=== PATIENT | female | born 1960 | race Caucasian/White ===

== ENCOUNTER → 2018-01-21 14:34 | Outpatient (CLI) | payer OTHER, SELFPAY ==
--- NOTE | 2018-01-21 14:36 | HPBI_ITS ---
MAMMOGRAPHY - BILATERAL SCREENING REASON FOR EXAM: Female, 57 years old. Routine annual screening examination. PERTINENT HISTORY: Grandmother with breast cancer. TECHNIQUE: Digital bilateral breast marleny (3D mammographic acquisition) in the CC and MLO projections. 2-D mediolateral oblique (MLO) and craniocaudad (CC) views of both breasts were obtained. CAD: Full Field Digital Mammography with Computer Added Detection was performed. COMPARISON: Comparison is made with prior study dated January 11, 2017 and October 11, 2015. FINDINGS: Breast Composition: The breasts are heterogeneously dense, which may obscure small masses. There are no dominant masses or suspicious calcifications. No other significant abnormalities are identified. There has been no significant change since the prior study. HPBI/SCREENING MAMM (CAD), BILAT IMPRESSION: Stable bilateral screening mammogram. Yearly follow-up mammogram recommended. (A) ASSESSMENT CATEGORY: BIRADS Category 1: Negative. A letter regarding these results will be sent to the patient by the facility within 30 days. Approximately 10% of breast cancers are not detected by mammography. A normal mammogram should not delay biopsy of a clinically suspicious abnormality. [id number] Electronically Signed: Jordy Antonio MD at 8:05 EDT Tel [phone], Service support ,
== END ==
PROVIDERS: Family Provider Family Medicine; PCP Family Medicine; Visit Provider Family Medicine
DX: Z12.31 Encounter for screening mammogram for malignant neoplasm of breast (principal)
CPT/HCPCS: 77063; 77067

== ENCOUNTER → 2018-10-02 08:10 | Outpatient (CLI) | payer OTHER, SELFPAY ==
[2018-10-02 11:56] LABS: Absolute Lymphocyte Count 1.82 X10^3/ul (0.83-4.51); Absolute Neutrophil Count 4.2 X10^3/uL (2.0-7.7); Basophil# 0.01 X10^3/uL; Basophil% 0.2 % (0-1); Eosinophil# 0.08 X10^3/uL; Eosinophils% 1.2 % (0-5); Hematocrit 42.5 % (37-47); Lymphocyte # 1.82 X10^3/ul (4.0); Lymphocyte % 27.9 % (19-41); Mean Corp Hgb Conc 32.9 g/gl (32-36); Mean Corpuscular Hgb 28.5 pg (27.0-32.0); Mean Corpuscular Volume 86.6 fL (81-99); Mean Platelet Vol. 10.3 fl (6.2-12.0); Monocyte# 0.41 X10^3/uL; Monocyte% 6.3 % (0-10); Neutrophil # 4.19 X10^3/uL (2.7-7.7); Neutrophil % 64.2 % (47-70); Platelet Count 320 K/mm3 (150-450); RBC Distribution Width CV 13.5 % (11.6-14.6); RBC Distribution Width SD 42.8 fl (35.1-43.9); Red Blood Count 4.91 M/mm3 (4.2-5.4); White Blood Count 6.5 K/mm3 (4.4-11.0)
[2018-10-02 12:01] LABS: POSITIVE COUNT NO; POSITIVE DIFFERENTIAL NO; POSITIVE MORPHOLOGY NO
[2018-10-02 12:15] LABS: ALB/GLOB Ratio 1.1 RATIO (0.9-2.4); AST(SGOT) 35 U/L (15-37); Alanine Aminotransfer ALT/SGPT 54 U/L (13-56); Albumin, Serum 4.2 g/dL (3.2-5.0); Alkaline Phosphatase 133 U/L (45-117); Anion Gap 7 (5-15); BUN 18 mg/dL (7-18); Calcium,Total 9.4 mg/dL (8.5-10.1); Chloride 106 mmol/L (98-107); Cholesterol 259 mg/dL (200); Creatinine, Serum 0.78 mg/dL (0.55-1.02); EST Glomerular Filtration Rate 81 mL/min (>60); Est Glom Filt Rate - Afr Amer 98 mL/min (>60); Globulin 3.9 g/dL (2.2-4.2); Glucose 98 mg/dL (74-106); High Density Lipoprotein 45 mg/dL; Potassium 4.1 mmol/L (3.5-5.1); Protein, Total 8.1 g/dL (6.4-8.2); Sodium Level 140 mmol/L (136-145); T4 Free Direct 0.98 ng/dL (0.76-1.46); Thyroid Stim Hormone (TSH) 0.47 uIU/mL (0.358-3.74); Triglycerides 186 mg/dL; Very Low Density Lipoprotein 37 mg/dL (5-40)
--- OUTSIDE RECORDS SUMMARY | 2018-11-27 08:01 | XMS RPT_ITS ---
:1960 Author Organization [facility] Care Team Providers Name Role Phone Masoud Villanueva Attending Unavailable Malys, Liz Primary Care Unavailable Chad Luna Attending Unavailable Chad Luna Referring Unavailable Malys, Liz Primary Care Unavailable Malys, Liz Attending Unavailable Malys, Liz Primary Care Unavailable Malys, Liz Attending Unavailable Malys, Liz Primary Care Unavailable PROBLEMS PROBLEMS DATE TYPE CONDITION / CODE ATTENDING STATUS SOURCE 10/02/2018 Unknown Z51.81 - Encounter Malys, Liz Active [facility] for therapeutic Community drug level Hospital monitoring / Repository Z51.81(ICD-10) 10/02/2018 Unknown E78.5 - Malys, Liz Active [facility] Hyperlipidemia, Community unspecified / Hospital E78.5(ICD-10) Repository 10/02/2018 Unknown E04.1 - Nontoxic Malys, Liz Active [facility] single thyroid Community nodule / Hospital E04.1(ICD-10) Repository 10/29/2017 Unknown 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 / Hospital E04.2(ICD-10) Repository PROCEDURES PROCEDURES No Procedure Records FoundRESULTS RESULTS CBC W/DIFF, AUTOMATED Collected: 10/02/2018 Status: F Source: [place] 8:11 AM [facility] REPOSITORY TYPE CODE TESTS RESULT OUT OF RANGE REFERENCE UNITS LAB L100.1000 4.4-11.0 K/mm3 Normal WBC 6.5 LAB L100.1200 4.2-5.4 M/mm3 Normal RBC 4.91 LAB L100.1300 12.0-15.0 g/dl Normal HGB 14.0 LAB L100.1400 37-47 % Normal HCT 42.5 LAB L100.1500 81-99 fL Normal MCV 86.6 LAB L100.1600 27.0-32.0 pg Normal MCH 28.5 LAB L100.1700 32-36 g/gl Normal MCHC 32.9 LAB L100.1810 11.6-14.6 % Normal RDW CV 13.5 LAB L100.1820 35.1-43.9 fl Normal RDW SD 42.8 LAB L100.1900 150-450 K/mm3 Normal PLT 320 LAB L100.2000 6.2-12.0 fl Normal MPV 10.3 LAB L100.2100 47-70 % Normal NEUT% 64.2 LAB L100.2200 19-41 % Normal LY% 27.9 LAB L100.2300 0-10 % Normal MONO% 6.3 LAB L100.2400 0-5 % Normal EO% 1.2 LAB L100.2500 0-1 % Normal BASO% 0.2 LAB L100.2550 0.0-0.9 % Normal IM GRAN % 0.200 Result Comment: IG% - Immature Granulocytes (promyelocytes, myelocytes and metamyelocytes) > 1% indicates that a LEFT SHIFT is Present. LAB L100.2620 2.0-7.7 X10 3/uL Normal Absolute Neut 4.2 LAB L100.2720 0.83-4.51 X10 3/ul Normal Absolute Lymph 1.82 Performed By: #### L100.0100 #### [facility] [place], [address] COMPREHENSIVE METABOLIC Collected: 10/02/2018 Status: F Source: KATHRINE ORTIZ 8:[address] [facility] REPOSITORY TYPE CODE TESTS RESULT OUT OF RANGE REFERENCE UNITS LAB L501.0100 74-106 mg/dL Normal GLU 98 Result Comment: Please note revised GLUCOSE reference range effective 2017. LAB L501.1000 7-18 mg/dL Normal BUN 18 LAB L501.1100 0.55-1.02 mg/dL Normal CREAT,SERUM 0.78 Result Comment: The validity of the calculated GFR AND GFRAA in patients over 70 years has not been determined. Clinical correlation is essential. LAB L501.1110 >60 mL/min Normal EST GFR 81 Result Comment: Non- GFR Calc LAB L501.1115 >60 mL/min Normal EST GFR - AA 98 Result Comment: GFR Calc LAB L501.1300 10-20 RATIO High BUN/CRE 23.0 LAB L501.1500 6.4-8.2 g/dL T Normal PROT 8.1 LAB L501.1800 3.2-5.0 g/dL Normal ALB 4.2 LAB L501.1950 2.2-4.2 g/dL Normal GLOB 3.9 LAB L501.2000 0.9-2.4 RATIO Normal A/G 1.1 LAB L501.2200 8.5-10.1 mg/dL CA Normal 9.4 LAB L501.4100 15-37 U/L Normal AST 35 LAB L501.4305 45-117 U/L High ALK P 133 LAB L501.4405 13-56 U/L Normal ALT 54 LAB L501.4600 0.20-1.00 mg/dL T Normal BILI 0.40 LAB L501.5300 136-145 mmol/L NA Normal 140 LAB L501.5600 3.5-5.1 mmol/L K Normal 4.1 LAB L501.5900 98-107 mmol/L CL Normal 106 LAB L501.6100 21.0-32.0 mmol/L Normal CO2 27.0 LAB L501.6200 5-15 Normal GAP 7 Performed By: #### L500.4050, L500.4100, L501.9520, L506.0400 #### [facility] [address] [place], [place], [id number] LIPID PROFILE Collected: 10/02/2018 Status: F Source: KATHRINE 8:[address] [facility] REPOSITORY TYPE CODE TESTS RESULT OUT OF RANGE REFERENCE UNITS LAB L501.4900 200 mg/dL High CHOL 259 Result Comment: <200 mg/dL Desirable 200-240 mg/dL Borderline >240 mg/dL High Risk LAB L501.5000 mg/dL Normal TRIG 186 Result Comment: The drugs N-Acetylcysteine and Metamizole may falsely depress this assay. Serum Triglycerides Reference Interval Normal <150 mg/dL Borderline high 150 - 199 mg/dL High 200 - 499 mg/dL Very High > or = 500 mg/dL LAB L501.6400 mg/dL Normal HDL 45 Result Comment: The drugs N-Acetylcysteine and Metamizole may falsely depress this assay. Reference Range HDL <40 mg/dL Low HDL Cholesterol HDL >or= 60 mg/dL High HDL Cholesterol LAB L501.6500 0-130 mg/dL High LDL 177 LAB L501.6600 5-40 mg/dL Normal VLDL 37 Performed By: #### L500.4050, L500.4100, L501.9520, L506.0400 #### [facility] [address] [facility] [place], [place], [id number] THYROID STIM HORMONE Collected: 10/02/2018 Status: F Source: KATHRINE (TSH) 8:[address] [facility] REPOSITORY TYPE CODE TESTS RESULT OUT OF RANGE REFERENCE UNITS LAB L501.9520 0.358-3.74 uIU/mL Normal TSH 0.47 Performed By: #### L500.4050, L500.4100, L501.9520, L506.0400 #### [facility] [address] [facility] [place], [place], [id number] T4 FREE DIRECT Collected: 10/02/2018 Status: F Source: KATHRINE 8:[address] [facility] REPOSITORY TYPE CODE TESTS RESULT OUT OF RANGE REFERENCE UNITS LAB L506.0400 0.76-1.46 ng/dL Normal T4 FREE 0.98 DIRECT Performed By: #### L500.4050, L500.4100, L501.9520, L506.0400 #### [facility] [address] [place], [address] T3 TOTAL - TRIIODOTHYRONINE Collected: 10/02/2018 Status: F Source: [place] 8:[address] [facility] REPOSITORY TYPE CODE TESTS RESULT OUT OF RANGE REFERENCE UNITS LAB L501.9186 0.6-1.81 ng/mL Normal T3 Total 1.30 Performed By: #### L501.9186 #### [facility] [address] [place], [address] SCREENING MAMM (CAD), Observed: 01/21/2018 Status: F Source: [place] BILAT 2:[address] [facility] REPOSITORY [facility] Imaging Services [address] [place] [address] SCREENING MAMM (CAD), BILAT MR#: [id number] Acct: [id number] Name: POOJA MATSON Rep #: [id number] : 1960 F 57 From: Jordy Antonio MD PCP: Liz Mendoza DO Status: REG CL Study: SCREENING MAMM (CAD), BILAT Date of Exam: 01/21/18 Exam# [id number] Ordering Dr: Liz Mendoza DO MAMMOGRAPHY - BILATERAL SCREENING REASON FOR EXAM: Female, 57 years old. Routine annual screening examination. PERTINENT HISTORY: Grandmother with breast cancer. TECHNIQUE: Digital bilateral breast marleny (3D mammographic acquisition) in the CC and MLO projections. 2-D mediolateral oblique (MLO) and craniocaudad (CC) views of both breasts were obtained. CAD: Full Field Digital Mammography with Computer Added Detection was performed. COMPARISON: Comparison is made with prior study dated January 11, 2017 and October 11, 2015. FINDINGS: Breast Composition: The breasts are heterogeneously dense, which may obscure small masses. There are no dominant masses or suspicious calcifications. No other significant abnormalities are identified. There has been no significant change since the prior study. HPBI/SCREENING MAMM (CAD), BILAT IMPRESSION: Stable bilateral screening mammogram. Yearly follow-up mammogram recommended. (A) ASSESSMENT CATEGORY: BIRADS Category 1: Negative. A letter regarding these results will be sent to the patient by the facility within 30 days. Approximately 10% of breast cancers are not detected by mammography. A normal mammogram should not delay biopsy of a clinically suspicious abnormality. [id number] Electronically Signed: Jordy Antonio MD at 8:05 EDT Tel [phone], Service support , CC: Liz Mendoza DO Loss Prevention Analyst: Signed US THYROID BIOPSY Observed: 11/15/2017 Status: F Source: [place] 9:[address] [facility] REPOSITORY [facility] Imaging Services [address] [place] [address] US Thyroid Biopsy MR#: [id number] Acct: [id number] Name: POOJA MATSON Rep #: [id number] : 1960 F 57 From: Jordy Antonio MD PCP: Liz Mendoza DO Status: REG CLI Study: US Thyroid Biopsy Date of Exam: 11/15/17 Exam# [id number] Ordering Dr: Chad Luna MD PROCEDURE: ULTRASOUND GUIDED LEFT LOBE THYROID FNA/BIOPSY. DATE: November 15, 2017. INDICATION: Female, 57 years old. Left thyroid nodule. PHYSICIAN: Jordy Antonio M.D. MEDICATIONS: 2% lidocaine administered subcutaneously for local anesthesia. ACCESS SITE: Left - anterior approach. NEEDLE: 25-gauge FNA needle. SPECIMEN: Multiple FNA specimen collected and given to pathology. EBL: None. COMPLICATIONS: None immediate. PROCEDURE: The risks, benefits, and alternatives to the procedure were explained to the patient. The specific risk of hemorrhage requiring further treatment or intervention was detailed and accepted. Written informed consent was obtained. The patient was brought into the ultrasound room and placed in the supine position on the stretcher. An appropriate entry site was identified. The overlying skin was prepped and draped in the usual sterile fashion. 2% lidocaine was administered subcutaneously for local anesthesia. Under ultrasound guidance, a 25-gauge FNA needle was advanced into the lesion. Aspiration was performed and the needle was withdrawn. A total of 4 passes were performed with specimen collected and given to the pathologist who was present during the procedure. Hemostasis was achieved with manual compression. Repeat ultrasound images of the biopsy area was performed which demonstrated no gross bleeding or hematoma. An antibiotic ointment dressing was placed and the patient was given an icepack. The patient tolerated the procedure well without immediate complications. The patient was discharged in stable condition. US/US Thyroid Biopsy IMPRESSION: Successful ultrasound-guided left thyroid nodule FNA/biopsy, as described above. Electronically Signed: Jordy Antonio MD at 11:11 EST Tel [phone], Service support , CC: Chad Luna MD; Liz Mendoaz DO Loss Prevention Analyst: Signed THYROID STIM HORMONE Collected: 11/15/2017 Status: F Source: [place] (TSH) 9:[address] [facility] REPOSITORY TYPE CODE TESTS RESULT OUT OF RANGE REFERENCE UNITS LAB L501.9520 0.358-3.74 uIU/mL Normal TSH 0.45 Performed By: #### L501.9520 #### [facility] [address] [place], [address] ASP RADIOLOGY (FLUID) Observed: 11/15/2017 Status: F Source: KATHRINE 12:[address] [facility] REPOSITORY Patient: POOJA MATSON : 1960 (57/F) Acct Num: [id number] Phys: Chad Luna MD Unit Num: [id number] Loc: Specimen: [id number] Received: 11/15/17 - 1204 Spec Type: ASP OUT TISSUES TISSUES: Thyroid gland, NOS COMMENT The specimen is evaluated at the time of left thyroid FNA by Dr. Rai. Immediate Evaluation = Set #1 A few follicular cells noted. Set #2 Follicular cells noted. Correlation with clinical, radiologic findings and appropriate follow up are necessary. Please make reference to previous specimen ([id number]) right thyroid, FNA with diagnosis of consistent with colloid nodule. CYTOLOGY GROSS Set #1 3 passes - Received is 0.1 ml of bloody fluid labeled with the patient' s name, and designated left thyroid nodule. Four imprints and four paps are made from the submitted fluid and the rest is added to CytoLyt for cell block preparation. Submitted for cytology study. Set #2 1 pass - Received is 0.1 ml of bloody fluid labeled with the patient's name, and designated left thyroid nodule. Two imprints and two paps are made from the submitted fluid and the rest is added to CytoLyt for cell block preparation. Submitted for cytology study. / PHOEBE:kaitlynn 11/15/17 TC:5 CPT: 55928, 38227, 64729, 67055, 21779 CYTOLOGY STUDY Slides are reviewed. The specimen is adequate for evaluation. The specimen consists of benign follicular cells, H rthle cells and a small amount of colloid. DIAGNOSIS CYTOLOGY Left thyroid nodule, ultrasound-guided FNA (smears, cytospin and cell block): Consistent with benign follicular nodule. See cytology study and comment. SJ:kaitlynn 11/18/17 HEADER OPERATION: Thyroid FNA PRE-OP DIAGNOSIS: Nodule TISSUE SUBMITTED: Left thyroid nodule FNA Signed Nazario Rai 11/18/17 <signature on file> Performed By: #### PASTHAG #### [facility] [address] [facility] [place], [address] THYROID Observed: 10/29/2017 Status: F Source: [place] 2:[address] [facility] REPOSITORY [facility] Imaging Services [address] [place] [address] [place] [address] Thyroid MR#: [id number] Acct: [id number] Name: POOJA MATSON Rep #: [id number] : 1960 F 57 From: Coy Chaney MD PCP: Liz Mendoza DO Status: REG CLI Study: Thyroid Date of Exam: 10/29/17 Exam# [id number] Ordering Dr: Masoud Villanueva DO STUDY: THYROID ULTRASOUND REASON FOR EXAM: Female, 57 years old. Enlarged thyroid. History of nodules. TECHNIQUE: Ultrasound evaluation of the thyroid was performed with real-time and static bill-scale imaging. COMPARISON: None. FINDINGS: RIGHT LOBE: The right lobe of the thyroid gland measures 5.2 x 2.4 x 1.8 cm. There is a homogeneous echotexture. There are 2 solid, incompletely defined nodules. One is in the medial upper pole, measuring 8 x 9 x 6 mm. Just below this is a 10 x 8 x 8 mm nodule. LEFT LOBE: The left lobe of the thyroid gland measures 5.8 x 2.0 x 1.5 cm. There is a homogeneous echotexture. There is an incompletely defined 2.3 x 1.3 x 1.2 cm solid nodule in the posterior lower pole. ISTHMUS: The isthmus measures 5 mm. The regional lymph nodes are normal. The patient had a history of congenital esophageal atresia. There are additional echogenic findings lateral to the right lobe that are presumably related to previous esophageal repair. US/Thyroid IMPRESSION: Bilateral solid thyroid nodules, as described. The largest is in the left lobe. Comparison with the previous outside studies would be useful. If clinically indicated, the left lobe nodule may be amenable to ultrasound-guided needle biopsy. Electronically Signed: Owen Chaney MD at 15:50 EST , Service support , CC: Liz Mendoza DO; Masoud Villanueva DO Loss Prevention Analyst: Signed ALLERGIES ALLERGIES DATE TYPE / CODE NAME / CODE REACTION SEVERITY SOURCE 09/02/2015 Drug nut - Anaphylaxis Unknown [facility] Allergy/4160 unspecified [facility] [address](SNOMED /[id number] Repository CT) (RXNORM) ENCOUNTERS ENCOUNTERS ADMIT/DISCHARGE ACCOUNT ADMITTING ENCOUNTER LOCATION SOURCE NUMBER CLASS 10/02/2018 [id number] Ambulatory Kathrine Breaks 0 [facility] ing:LAB.FUTUR Repository E 01/21/2018 [id number] Ambulatory [place] Bre[place] 8 [facility] ing:[place] Repository 11/15/2017 [id number] Ambulatory Kathrine Bre[place] 8 [facility] ing:[place] Repository 10/29/2017 [id number] Ambulatory Kathrine Kathrine 7 [facility] ing:[place] Repository PAYERS PAYERS ENCOUNTER GUARANTOR PAYER SUBSCRIBER SOURCE 10/02/2018 Pooja Matson1296 Primary Pooja GroopDOB: Kathrine BLANK [place]WOOSTER, Insurance:[place] [id number] [address]Lzb: icy Number: [facility] [id number] Repository (HP) Date:[id number] [address] [address]PZ: 10/02/2018 Secondary NOT GIVENUNK Kathrine Insurance:SELF PAY [facility] Number: Effective Repository Date:2018-09-05 01/21/2018 Pooja Matson1296 Primary Pooja GroopDOB: Kathrine BLANK [place]WOOSTER, Insurance:[employer] [id number] [address]Jea: icy Number: [facility] [id number] Repository (HP) Date:[id number] [address]KC: 01/21/2018 Secondary NOT GIVENUNK Bre[place] Insurance:SELF PAY [facility] Number: Effective Repository Date:2018-01-01 11/15/2017 Pooja Matson1296 Primary Pooja GroopDOB: Breaks BLANK [place]ER, Insurance:[employer] [id number] [address]Fif: icy Number: [facility] [id number] Repository () Date:7919-07-11GU [address] [address]KZ: 11/15/2017 Secondary NOT GIVENUNK Kathrine Insurance:SELF PA[facility] Number: Effective Repository Date:2017-11-13 10/29/2017 Pooja Maurice6 Primary Pooja VillegasB: Kathrine WONG, Insurance:[employer] [id number] [address]Hrx: icy Number: [facility] [id number] Repository () Date:7425-04-15TA [address] [address]GE: 10/29/2017 Secondary NOT GIVENUNK Breaks Insurance:SELF PAY [facility] Hospital Number: Effective Repository Date:2017-10-21
== END ==
PROVIDERS: Family Provider Family Medicine; PCP Family Medicine; Visit Provider Family Medicine
DX: E78.5 Hyperlipidemia, unspecified (principal); E04.1 Nontoxic single thyroid nodule; Z51.81 Encounter for therapeutic drug level monitoring
CPT/HCPCS: 36415; 80053; 80061; 84439; 84443; 84480; 85025

== ENCOUNTER → 2018-11-19 10:01 | Outpatient (CLI) | payer OTHER, SELFPAY ==
--- NOTE | 2018-11-19 10:06 | US_ITS ---
STUDY: THYROID ULTRASOUND REASON FOR EXAM: Female, 58 years old. History of thyroid nodules. Prior left thyroid biopsy. TECHNIQUE: Ultrasound evaluation of the thyroid was performed with real-time and static bill-scale imaging. COMPARISON: Comparison is made with prior study dated October 29, 2017. FINDINGS: RIGHT LOBE: The right lobe of the thyroid gland is enlarged and measures 5.8 cm x 3 cm x 1.9 cm. There is a homogeneous echotexture. There are 3 solid nodules within the lobe. The largest measures 1.4 cm x 0.9 cm x 0.8 cm. LEFT LOBE: The left lobe of the thyroid gland is enlarged and measures 6 cm x 2.1 cm x 1.8 cm. There is a homogeneous echotexture. 2 solid nodules are seen. The largest measures 2.4 cm x 2 cm x 1.2 cm. This is in the midportion of the left lobe. ISTHMUS: The isthmus measures 4.0 mm. The regional lymph nodes are normal. US/Thyroid IMPRESSION: Enlargement of the right and left lobes of the thyroid gland. Stable solid nodules in both lobes more prominent on the left side. The patient underwent a biopsy of the dominant nodule in the left lobe. Electronically Signed: Jordy Antonio MD at 12:45 EST Tel [phone], Service support ,
--- OUTSIDE RECORDS SUMMARY | 2019-01-24 02:42 | XMS RPT_ITS ---
:1960 Author Organization [facility] Care Team Providers Name Role Phone Luna, Chad Attending Unavailable Luna, Chad Referring Unavailable Malys, Liz Primary Care Unavailable Malys, Liz Attending Unavailable Malys, Liz Primary Care Unavailable Malys, Liz Attending Unavailable Malys, Liz Primary Care Unavailable PROBLEMS PROBLEMS DATE TYPE CONDITION / CODE ATTENDING STATUS SOURCE 10/02/2018 Unknown Z51.81 - Malys, Liz Active [place] Encounter for Community therapeutic drug Hospital level monitoring Repository / Z51.81(ICD-10) 10/02/2018 Unknown E78.5 - Malys, Liz Active [place] Hyperlipidemia, Community unspecified / Hospital E78.5(ICD-10) Repository 10/02/2018 Unknown E04.1 - Nontoxic Malys, Liz Active [place] single thyroid Community nodule / Hospital E04.1(ICD-10) Repository PROCEDURES PROCEDURES No Procedure Records FoundRESULTS RESULTS THYROID Observed: 11/19/2018 Status: F Source: [place] 10:07 AM [facility] RE[facility]IT[facility] Imaging Services [address] [place] [address] Thyroid MR#: [id number] Acct: [id number] Name: POOJA MATSON Rep #: [id number] : 1960 F 58 From: Jordy Antonio MD PCP: Liz Mendoza DO Status: REG CLI Study: Thyroid Date of Exam: 11/19/18 Exam# [id number] Ordering Dr: Chad Luna MD STUDY: THYROID ULTRASOUND REASON FOR EXAM: Female, 58 years old. History of thyroid nodules. Prior left thyroid biopsy. TECHNIQUE: Ultrasound evaluation of the thyroid was performed with real-time and static bill-scale imaging. COMPARISON: Comparison is made with prior study dated October 29, 2017. FINDINGS: RIGHT LOBE: The right lobe of the thyroid gland is enlarged and measures 5.8 cm x 3 cm x 1.9 cm. There is a homogeneous echotexture. There are 3 solid nodules within the lobe. The largest measures 1.4 cm x 0.9 cm x 0.8 cm. LEFT LOBE: The left lobe of the thyroid gland is enlarged and measures 6 cm x 2.1 cm x 1.8 cm. There is a homogeneous echotexture. 2 solid nodules are seen. The largest measures 2.4 cm x 2 cm x 1.2 cm. This is in the midportion of the left lobe. ISTHMUS: The isthmus measures 4.0 mm. The regional lymph nodes are normal. US/Thyroid IMPRESSION: Enlargement of the right and left lobes of the thyroid gland. Stable solid nodules in both lobes more prominent on the left side. The patient underwent a biopsy of the dominant nodule in the left lobe. Electronically Signed: Jordy Antonio MD at 12:45 EST Tel [phone], Service support , CC: Chad Luna MD; Liz Mendoza DO Assembler Body: Signed CBC W/DIFF, AUTOMATED Collected: 10/02/2018 Status: F Source: [place] 8:11 AM [facility] REPOSITORY TYPE CODE TESTS RESULT OUT [...] Lymph 1.82 Performed By: #### L100.0100 #### [facility] [address] [place], [address] COMPREHENSIVE METABOLIC Collected: 10/02/2018 Status: F Source: [place] [facility] 8:11 AM [facility] REPOSITORY TYPE CODE TESTS RESULT OUT [...] By: #### L500.4050, L500.4100, L501.9520, L506.0400 #### [facility] [address] [place], [address] LIPID PROFILE Collected: 10/02/2018 Status: F Source: [place] 8:11 AM [facility] REPOSITORY TYPE CODE TESTS RESULT OUT [...] By: #### L500.4050, L500.4100, L501.9520, L506.0400 #### [facility] [address] [place], [place], [id number] THYROID STIM HORMONE Collected: 10/02/2018 Status: F Source: [place] (TSH) 8:11 AM [facility] REPOSITORY TYPE CODE TESTS RESULT OUT OF RANGE REFERENCE UNITS LAB L501.9520 0.358-3.74 uIU/mL Normal TSH 0.47 Performed By: #### L500.4050, L500.4100, L501.9520, L506.0400 #### [facility] [address] [place], [place], [address] T4 FREE DIRECT Collected: 10/02/2018 Status: F Source: [place] 8:11 AM [facility] REPOSITORY TYPE CODE TESTS RESULT OUT OF RANGE REFERENCE UNITS LAB L506.0400 0.76-1.46 ng/dL Normal T4 FREE 0.98 DIRECT Performed By: #### L500.4050, L500.4100, L501.9520, L506.0400 #### [facility] [address] [place], [place], [address] T3 TOTAL - TRIIODOTHYRONINE Collected: 10/02/2018 Status: F Source: [place] 8:11 AM [facility] REPOSITORY TYPE CODE TESTS RESULT OUT OF RANGE REFERENCE UNITS LAB L501.9186 0.6-1.81 ng/mL Normal T3 Total 1.30 Performed By: #### L501.9186 #### [facility] [address] [place], [address] SCREENING MAMM (CAD), Observed: 01/21/2018 Status: F Source: [place] BILAT 2:36 PM [facility] REPOSITORY [facility] Imaging Services [address] [place] [address] SCREENING MAMM (CAD), BILAT MR#: [id number] Acct: [id number] Name: POOJA MATSON Rep #: [id number] : 1960 F 57 From: Jordy Antonio MD PCP: Liz Mendoza DO Status: REG CLI Study: SCREENING MAMM (CAD), BILAT Date of Exam: 01/21/18 Exam# [id number] Ordering Dr: Liz Mendoza DO MAMMOGRAPHY - [...] delay biopsy of a clinically suspicious abnormality. [id number] Electronically Signed: Jordy Antonio MD at 8:05 EDT Tel [phone], Service support , CC: Liz Mendoza DO Assembler Body: Signed ALLERGIES ALLERGIES DATE TYPE / CODE NAME / CODE REACTION SEVERITY SOURCE 09/02/2015 Drug nut - Anaphylaxis Unknown [place] [facility] Allergy/4160 unspecified Hospital 11914(SNOMED /[id number] Repository CT) (RXNORM) ENCOUNTERS ENCOUNTERS ADMIT/DISCHARGE ACCOUNT ADMITTING ENCOUNTER LOCATION SOURCE NUMBER CLASS 11/19/2018 [id number] Ambulatory [place] [facility] ing:US Repository 10/02/2018 [id number] Ambulatory [place] [facility] ing:LAB.LOVE Repository E 01/21/2018 [id number] Ambulatory [place] [facility] ing: Repository PAYERS PAYERS ENCOUNTER GUARANTOR PAYER SUBSCRIBER SOURCE 11/19/2018 POOJA Laboy Primary POOJA S [place] [id number] BLANK Insurance:DIANELYSCAREJosé GROOPDOB: [facility] jeramie WONG [facility] Number: [id number] Hospital [address]Jyk: (269) [id number] Repository [phone] () Date:2451-23-24BB [address] [place] [phone]: 11/19/2018 Secondary NOT GIVENUNK [place] Insurance:SELF PAY [facility] Number: Effective Repository Date:2018-10-31 10/02/2018 Pooja [id number] Primary Pooja GroopDOB: [place] BLANK MARVIN, Insurance:AULTCAREPol [id number] [address]Jue: icy Number: [facility] [id number] Repository () Date:1663-57-14OO [address] [place] [id number]: 10/02/2018 Secondary NOT GIVENUNK [place] Insurance:SELF PAY [facility] Number: Effective Repository Date:2018-09-05 01/21/2018 Pooja [id number] Primary Pooaj MatsonB: [place] BLANKKenna WONG, Insurance:AULTCAREPol [id number] [address]Kpv: icy Number: [facility] [id number] Repository () Date:4264-24-48NN [facility] [address] [place] [id number]: 01/21/2018 Secondary NOT GIVENUNK [place] Insurance:SELF PAY [facility] Number: Effective Repository Date:2018-01-01
== END ==
PROVIDERS: Family Provider Family Medicine; PCP Family Medicine; Referring Provider Otolaryngology; Visit Provider Otolaryngology
DX: E04.2 Nontoxic multinodular goiter (principal)
CPT/HCPCS: 76536

== ENCOUNTER → 2019-03-03 | Outpatient (CLI) | payer OTHER, SELFPAY ==
--- NOTE | 2019-03-03 12:03 | BI_ITS ---
MAMMOGRAPHY - BILATERAL SCREENING REASON FOR EXAM: Female, 58 years old. Routine annual screening examination. PERTINENT HISTORY: Grandmother with breast cancer. TECHNIQUE: Digital bilateral breast marleny (3D mammographic acquisition) in the CC and MLO projections. 2-D mediolateral oblique (MLO) and craniocaudad (CC) views of both breasts were obtained. CAD: Full Field Digital Mammography with Computer Added Detection was performed. COMPARISON: Comparison is made with prior study January 21, 2018 and January 11, 2017. FINDINGS: Breast Composition: The breasts are heterogeneously dense, which may obscure small masses. There are no dominant masses or suspicious calcifications. No other significant abnormalities are identified. There has been no significant change since the prior study. BI/SCREENING MAMM (CAD), BILAT IMPRESSION: Stable bilateral screening mammogram. Yearly follow-up mammogram recommended. (A) ASSESSMENT CATEGORY: BIRADS Category 1: Negative. A letter regarding these results will be sent to the patient by the facility within 30 days. Approximately 10% of breast cancers are not detected by mammography. A normal mammogram should not delay biopsy of a clinically suspicious abnormality. [id number] Electronically Signed: Jordy Antonio, at 13:49 EDT , Service support ,
== END | disposition home or self-care (01) ==
LOC: OPBI 12:01
PROVIDERS: Family Provider Family Medicine; PCP Family Medicine; Referring Provider Family Medicine; Visit Provider Family Medicine
DX: Z12.31 Encounter for screening mammogram for malignant neoplasm of breast (principal)
CPT/HCPCS: 77063; 77067

== ENCOUNTER → 2019-06-17 | Outpatient (CLI) | payer OTHER, SELFPAY ==
--- NOTE | 2019-06-17 09:00 | RAD_ITS ---
STUDY: X-RAY - RIGHT SHOULDER REASON FOR EXAM: Female, 59 years old. Fall. Posterior rib and right shoulder pain. TECHNIQUE: 4 view(s) of the shoulder. COMPARISON: Chest, September 02, 2015 FINDINGS: There is mild degenerative arthrosis of the glenohumeral articulation. There is degenerative arthrosis of the acromioclavicular joint without inferior osseous spur formation. Normal acromion. There is no acute fracture, dislocation or destructive osseous pathology. Normal humeral head and visualized proximal humerus. The soft tissue structures are unremarkable. There is slightly abnormal position of the right fourth rib. This appears unchanged from prior chest film. Normal visualized pulmonary apex. Question atelectatic changes at the right lung base. RAD/Shoulder min 2 Views IMPRESSION: Degenerative changes right shoulder without visualized fracture or dislocation. Electronically Signed: Tima Aguilar DO at 17:25 EDT Tel [phone], Service support ,
--- NOTE | 2019-06-17 09:01 | RAD_ITS ---
STUDY: X-RAY - UNILATERAL RIBS ( RIGHT ) WITH CHEST REASON FOR EXAM: Female, 59 years old. Fall. Posterior rib and right shoulder pain. TECHNIQUE - RIBS: 4 view(s) of the ribs. TECHNIQUE - CHEST: COMPARISON: Chest, September 02, 2015. FINDINGS - RIBS: There is no definite fracture. There is slight irregularity in positioning of the right fourth rib which is chronic and may represent a remote fracture. FINDINGS - CHEST: There is persistent scarring at the right lung base. There is no new mass or infiltrate. There is no demonstrated pleural abnormality. Normal size heart. Normal mediastinum and chikis. Normal visualized pulmonary arteries. Normal visualized aortic arch and descending thoracic aorta. There are diffuse degenerative changes of the visualized thoracic spine. There is degenerative osteoarthritis of the bilateral shoulders. There is no demonstrated abnormality of the visualized soft tissue structures of the upper abdomen. RAD/Ribs Uni Min 3V w/PA Chest IMPRESSION: RIBS: No evidence of acute rib fracture. CHEST: Stable scarring at the right lung base unchanged from the previous examination. Electronically Signed: Tima Aguilar DO at 17:39 EDT Tel [phone], Service support ,
== END | disposition home or self-care (01) ==
PROVIDERS: Family Provider Family Medicine; PCP Family Medicine; Referring Provider Family Medicine; Visit Provider Family Medicine
DX: M25.511 Pain in right shoulder (principal); R07.81 Pleurodynia
CPT/HCPCS: 71101; 73030

== ENCOUNTER → 2019-12-08 | Outpatient (CLI) | payer OTHER, SELFPAY ==
--- NOTE | 2019-12-08 13:39 | US_ITS ---
STUDY: THYROID ULTRASOUND REASON FOR EXAM: Female, 59 years old. MULTINODULAR GOITER , ESOPHAGEAL/COLONIC JUNCTION TO RT - PT BORN W/O ESOPHAGUS TECHNIQUE: Ultrasound evaluation of the thyroid was performed with real-time and static bill-scale imaging. COMPARISON: Comparison is made with prior examination dated November 19, 2018. FINDINGS: RIGHT LOBE: The right lobe of the thyroid gland is enlarged and measures 6.4 cm x 2.7 cm x 1.7 cm. There is a heterogeneous echotexture. There is a dominant solid nodule in the midpole of the right lobe measuring 2.3 cm x 1.1 cm x 0.8 cm. This has increased in size as compared to prior study. The other nodules are unchanged. LEFT LOBE: The left lobe of the thyroid gland is enlarged and measures 6 cm x 1.9 cm x 1.7 cm. There is a heterogeneous echotexture. A dominant solid nodule is seen in the lower pole measuring 2.7 cm x 2 cm x 1.5 cm. This is essentially unchanged. The other 2 solid nodules are unchanged as well. ISTHMUS: The isthmus measures 4.0 mm. The regional lymph nodes are normal. US/Thyroid IMPRESSION: Thyroid enlargement. Bilateral thyroid nodules. There is a dominant solid nodule in the right lobe of the thyroid measuring 2.3 cm x 1.1 cm x 0.8 cm. This has increased in size. Electronically Signed: Jordy Antonio, at 11:06 EST , Service support ,
== END | disposition home or self-care (01) ==
LOC: US 13:36
PROVIDERS: PCP Family Medicine; Referring Provider Otolaryngology; Visit Provider Otolaryngology
DX: E04.2 Nontoxic multinodular goiter (principal)
CPT/HCPCS: 76536

== ENCOUNTER → 2020-01-07 | Outpatient (CLI) | payer OTHER, SELFPAY ==
[2020-01-07 18:47] LABS: Free T3 3.3 pg/mL (2.18-3.98); T4 Free Direct 0.97 ng/dL (0.76-1.46); Thyroid Stim Hormone (TSH) 0.68 uIU/mL (0.358-3.74)
[2020-01-08 08:23] LABS: PTHIN 38.3 pg/mL (18.4-80.1)
== END | disposition home or self-care (01) ==
LOC: BFHLAB 16:13
PROVIDERS: PCP Family Medicine; Visit Provider Family Medicine
DX: E03.9 Hypothyroidism, unspecified (principal)
CPT/HCPCS: 36415; 82330; 83970; 84439; 84443; 84481

== ENCOUNTER → 2020-09-06 13:02 | Outpatient (CLI) | payer OTHER, SELFPAY ==
--- NOTE | 2020-09-06 13:04 | BI_ITS ---
MAMMOGRAPHY - BILATERAL SCREENING REASON FOR EXAM: Female, 60 years old. Routine annual screening examination. PERTINENT HISTORY: Grandmother with breast cancer. TECHNIQUE: Digital bilateral breast janet (3D mammographic acquisition) in the CC and MLO projections. 2-D mediolateral oblique (MLO) and craniocaudad (CC) views of both breasts were obtained. CAD: Full Field Digital Mammography with Computer Added Detection was performed. COMPARISON: Comparison is made with prior study dated 03/03/2019 and 01/21/2018. FINDINGS: Breast Composition: The breasts are heterogeneously dense, which may obscure small masses. There are no dominant masses or suspicious calcifications. No other significant abnormalities are identified. There has been no significant change since the prior study. BI/SCREEN MAMM (CAD) W/JANET BILAT IMPRESSION: Stable bilateral screening mammogram. Yearly follow-up mammogram recommended. (A) ASSESSMENT CATEGORY: BIRADS Category 1: Negative. A letter regarding these results will be sent to the patient by the facility within 30 days. Approximately 10% of breast cancers are not detected by mammography. A normal mammogram should not delay biopsy of a clinically suspicious abnormality. [id number] Electronically Signed: Jordy Antonio, at 14:43 EST , Service support ,
== END ==
PROVIDERS: PCP Family Medicine; Referring Provider Family Medicine; Visit Provider Family Medicine
DX: Z12.31 Encounter for screening mammogram for malignant neoplasm of breast (principal)
CPT/HCPCS: 77063; 77067

== ENCOUNTER → 2020-11-21 12:40 | Outpatient (CLI) | payer OTHER, SELFPAY ==
--- NOTE | 2020-11-21 12:42 | US_ITS ---
HISTORY: MULTINODULAR GOTIER-S/P ESOPHAGUS REPAIR ON RT COMPARISON: 12/08/2019 TECHNIQUE: Grayscale and color Doppler sonography of the thyroid gland. FINDINGS: RIGHT LOBE: 5.3 x 1.7 x 2.8 cm LEFT LOBE: 5.8 x 2.1 x 2.1 cm ISTHMUS: 5 mm Heterogeneous with multiple bilateral nodules. Nodule in the right mid thyroid lobe is smoothly marginated, wider than tall, heterogeneous but overall minimally hypoechoic compared to parenchyma without calcification, currently measuring 1.2 x 0.7 x 1.0 cm and previously measuring 1.1 x 0.8 x 1.1 cm. TIRADS 4. Predominantly isoechoic nodule in the right mid thyroid lobe measuring 1.4 x 0.9 x 1.7 cm is smoothly marginated, nearly isoechoic, wider than tall without calcification, previously 2.3 x 0.8 x 1.1 cm. TIRADS 3. Mixed cystic and solid nodule in the right thyroid lobe measures 0.8 x 0.4 x 0.7 cm, less than seen on the prior study but probably mildly decreased. Lesion is wider than tall, smoothly marginated without definite calcification. TIRADS 3. Predominantly isoechoic left thyroid lobe nodule measuring 2.6 x 1.4 x 1.8 cm, previously 2.7 x 1.5 x 2.0 cm. Lesion is smoothly marginated, wider than tall without calcification. TIRADS 3. 7 x 4 x 6 mm nearly isoechoic left thyroid lobe nodule which is smoothly marginated, wider than tall without calcification, previously 8 x 4 x 8 mm. TIRADS 3. US/Thyroid IMPRESSION: Bilateral thyroid nodules, as described. at 0426 Reported and signed by: Courtney Parmar MD Electronically Signed: Courtney Parmar MD at 4:26 EST Tel , Service support ,
== END ==
PROVIDERS: PCP Family Medicine; Referring Provider Otolaryngology; Visit Provider Otolaryngology
DX: E04.2 Nontoxic multinodular goiter (principal)
CPT/HCPCS: 76536

== ENCOUNTER → 2020-12-12 | Outpatient (CLI) | payer OTHER, SELFPAY ==
--- NOTE | 2020-12-12 | FLU_PTH ---
PATIENT: KVNG MATSON [facility] U#:[id number] AGE/SX: 60/F ROOM: RE12/12/[address]: Dr. Chad Luna MD : 1960 BED: DIS: 12/12/2020 SPEC #: [id number] RECD: 12/12/20 14:57 STATUS: ANGELA REQ #: [id number] JAS: 12/12/20 00:[address]: Chad Luna DEPT: CYTOLOGY RECD BY: Capri Kolb ENTERED: 12/13/20 07:11 SP TYPE: Fluid OTHR DR: Dr. Liz Mendoza, DO Tissues: Thyroid gland, NOS Procedures: Special Stain Group II Surgery Specimen Level IV Cytospin Fluid HEADER OPERATION: FNA right thyroid PRE-OP DIAGNOSIS: Enlarging right thyroid nodule TISSUE SUBMITTED: FNA right thyroid fluid for cytology DIAGNOSIS CYTOLOGY Fine needle aspiration, right thyroid nodule (cytospin and cell block): Adequate for evaluation. Negative, consistent with benign follicular nodule. AM:kaitlynn 12/14/2020 CYTOLOGY STUDY Slides are reviewed. CYTOLOGY GROSS Received is 35 ml of light pink fluid labeled with the patient's name and and designated per the requisition as right thyroid. Submitted for cytology preparation including cell block. / kaitlynn 12/13/2020 TC:5 CPT: 83635, 63681
== END | disposition home or self-care (01) ==
LOC: LABSPEC 15:14
PROVIDERS: PCP Family Medicine; Referring Provider Otolaryngology; Visit Provider Otolaryngology
DX: E04.1 Nontoxic single thyroid nodule (principal)
CPT/HCPCS: 88108; 88305; 88313

== ENCOUNTER → 2021-10-23 13:20 | Outpatient (CLI) | payer OTHER, SELFPAY ==
--- NOTE | 2021-10-23 13:22 | BI_ITS ---
MAMMOGRAPHY - BILATERAL SCREENING REASON FOR EXAM: Female, 61 years old. Routine annual screening examination. PERTINENT HISTORY: Grandmother with breast cancer. TECHNIQUE: Digital bilateral breast janet (3D mammographic acquisition) in the CC and MLO projections. 2-D mediolateral oblique (MLO) and craniocaudad (CC) views of both breasts were obtained. CAD: Full Field Digital Mammography with Computer Added Detection was performed. COMPARISON: Comparison is made with prior study dated 09/06/2020 and 03/03/2019. FINDINGS: Breast Composition: The breasts are heterogeneously dense, which may obscure small masses. There are no dominant masses or suspicious calcifications. Stable small benign appearing bilateral axillary nodes. No other significant abnormalities are identified. There has been no significant change since the prior study. BI/SCRN MAMM (CAD)W/JANET BILAT IMPRESSION: Stable bilateral screening mammogram. Yearly follow-up mammogram recommended. (A) ASSESSMENT CATEGORY: BIRADS Category 2: Benign. A letter regarding these results will be sent to the patient by the facility within 30 days. Approximately 10% of breast cancers are not detected by mammography. A normal mammogram should not delay biopsy of a clinically suspicious abnormality. [id number] Electronically Signed: Jordy Antonio MD at 14:29 EST , Service support ,
== END ==
PROVIDERS: PCP Family Medicine; Referring Provider Family Medicine; Visit Provider Family Medicine
DX: Z12.31 Encounter for screening mammogram for malignant neoplasm of breast (principal)
CPT/HCPCS: 77063; 77067

== ENCOUNTER 2021-11-29 09:41 | Outpatient (CLI) | payer OTHER, SELFPAY ==
--- NOTE | 2021-11-29 09:44 | US_ITS ---
STUDY: THYROID ULTRASOUND REASON FOR EXAM: Female, 61 years old. MULTINODULAR GOITER TECHNIQUE: Ultrasound evaluation of the thyroid was performed with real-time and static bill-scale imaging. COMPARISON: Comparison is made with prior study dated 11/21/2020. FINDINGS: RIGHT LOBE: The right lobe of the thyroid gland is enlarged and measures 5.2 cm x 2.6 x 1.5 cm. There is a heterogeneous echotexture. Once again, multiple thyroid nodules are seen. The largest nodule measures 1.6 cm x 1.4 cm x 0.9 cm. This is in the mid pole. This is unchanged. TIRADS Category 3. LEFT LOBE: The left lobe of the thyroid gland is enlarged and measures 5.5 cm x 2.1 cm x 2.1 cm. There is a heterogeneous echotexture. 2010, multiple nodules are seen. The largest hypoechoic solid nodule is in the lower pole and measures 2.7 cm x 1.6 cm x 2.1 cm. This is essentially unchanged. TIRADS Category 3 ISTHMUS: The isthmus measures 5 mm. The regional lymph nodes are normal. US/Thyroid IMPRESSION: Enlargement of the thyroid gland with the multiple bilateral nodular densities as described. The largest is in the left lobe. There has been no change. Electronically Signed: Jordy Antonio MD at 13:23 EST ,
== END 2021-11-29 23:59 | disposition short-term general hospital (02) ==
LOC: US 09:43
PROVIDERS: PCP Family Medicine; Referring Provider Otolaryngology; Visit Provider Otolaryngology
DX: E04.2 Nontoxic multinodular goiter (principal)
CPT/HCPCS: 76536

== ENCOUNTER → 2022-11-08 | Outpatient (CLI) | payer OTHER, SELFPAY ==
[2022-11-08 12:21] LABS: Absolute Lymphocyte Count 1.63 X10^3/uL (0.83-4.51); Absolute Neutrophil Count 2.8 X10^3/uL (2.0-7.7); Basophil# 0.03 X10^3/uL; Basophil% 0.6 % (0-1); Eosinophil# 0.23 X10^3/uL; Eosinophils% 4.5 % (0-5); Hemoglobin 13.3 g/dL (12.0-15.0); Lymphocyte # 1.63 X10^3/ul (0.83-4.51); Lymphocyte % 32.1 % (19-41); Mean Corp Hgb Conc 32.4 g/dL (32-36); Mean Corpuscular Hgb 27.9 pg (27.0-32.0); Mean Platelet Vol. 10.2 fl (6.2-12.0); Monocyte# 0.42 X10^3/uL; Monocyte% 8.3 % (0-10); NRBC Flagged by Analyzer 0 % (0-5); Neutrophil # 2.75 X10^3/uL (2.7-7.7); Neutrophil % 54.1 % (47-70); Platelet Count 333 K/mm3 (150-450); RBC Distribution Width CV 13.2 % (11.6-14.6); RBC Distribution Width SD 41.6 fl (35.1-43.9); Red Blood Count 4.77 M/mm3 (4.2-5.4); White Blood Count 5.1 K/mm3 (4.4-11.0)
[2022-11-08 12:59] LABS: AST(SGOT) 36 U/L (15-37); Alanine Aminotransfer ALT/SGPT 71 U/L (13-56); Alkaline Phosphatase 151 U/L (45-117); Anion Gap 4 (5-15); BUN 21 mg/dL (7-18); BUN/Creat Ratio 27.4 RATIO (10-20); Calcium,Total 9.6 mg/dL (8.5-10.1); Chloride 103 mmol/L (98-107); Cholesterol 198 mg/dL (200); Creatinine, Serum 0.77 mg/dL (0.55-1.02); EST Glomerular Filtration Rate 82 mL/min (>60); Est Glom Filt Rate - Afr Amer 99 mL/min (>60); Glucose 96 mg/dL (74-106); High Density Lipoprotein 40 mg/dL; Potassium 4.7 mmol/L (3.5-5.1); Sodium Level 137 mmol/L (136-145); Thyroid Stim Hormone (TSH) 0.45 uIU/mL (0.358-3.74); Triglycerides 209 mg/dL; Very Low Density Lipoprotein 42 mg/dL (5-40)
== END | disposition home or self-care (01) ==
LOC: BFHLAB 10:11
PROVIDERS: PCP Family Medicine; Visit Provider Family Medicine
DX: Z00.00 Encounter for general adult medical examination without abnormal findings (principal); E04.1 Nontoxic single thyroid nodule; Z13.220 Encounter for screening for lipoid disorders
CPT/HCPCS: 36415; 80053; 80061; 84443; 85025

== ENCOUNTER → 2022-12-13 | Outpatient (CLI) | payer OTHER, SELFPAY ==
--- NOTE | 2022-12-13 10:34 | MRI_ITS ---
EXAM: MR RIGHT LOWER EXTREMITY WITHOUT INTRAVENOUS CONTRAST, KNEE CLINICAL INDICATION: MEDIAL MENISCUS TEAR TECHNIQUE: Multiplanar and multisequence MR images of the right knee without intravenous contrast. This report was created using [employer] report generation technology. COMPARISON: None. FINDINGS: BONES/JOINTS: Focal marrow signal alteration at the medial patellar facet with note of an adjacent full-thickness fissure at the medial patellar facet. Mild subtle amorphous bone marrow signal alteration at the posterior to central aspect of the medial tibial plateau. No fracture line identified. No other bone marrow signal alterations. EXTENSOR MECHANISM: Extensor mechanism is intact. MEDIAL MENISCUS: Intact medial meniscus. LATERAL MENISCUS: Intact lateral meniscus. MEDIAL CAPSULE/SUPPORTING STRUCTURES: Unremarkable. Intact. LATERAL CAPSULE/SUPPORTING STRUCTURES: Unremarkable. Lateral collateral ligamentous complex, inclusive of the popliteal tendon, are intact. ANTERIOR CRUCIATE LIGAMENT: ACL graft is disrupted with anterior translation of the tibia relative to the femur. PCL is intact. POSTERIOR CRUCIATE LIGAMENT: Intact. MUSCLES: Unremarkable. CARTILAGE: Unremarkable. Intact. FLUID: Small amount of suprapatellar joint fluid with small Fatima''s cyst. No joint effusion. OTHER SOFT TISSUES: See above. MRI/Lower Ext Joint Only (Routine) IMPRESSION: 1. ACL graft is disrupted with anterior translation of the tibia relative to the femur. 2. Focal marrow signal alteration at the medial patellar facet with note of an adjacent full-thickness fissure at the medial patellar facet. Electronically Signed: John Wills MD at 21:16 EST Reading Location ID and State: [address] [place] [address] Tel , Service support ,
== END | disposition home or self-care (01) ==
PROVIDERS: PCP Family Medicine; Referring Provider Orthopaedic Surgery; Visit Provider Orthopaedic Surgery
DX: S83.241A Other tear of medial meniscus, current injury, right knee, initial encounter (principal); X58.XXXA Exposure to other specified factors, initial encounter
CPT/HCPCS: 73721

== ENCOUNTER → 2023-01-10 | Outpatient (CLI) | payer OTHER, SELFPAY ==
--- NOTE | 2023-01-10 08:08 | BI_ITS ---
MAMMOGRAPHY - BILATERAL SCREENING REASON FOR EXAM: Female, 62 years old. Routine annual screening examination. PERTINENT HISTORY: Grandmother with breast cancer. TECHNIQUE: Digital bilateral breast janet (3D mammographic acquisition) in the CC and MLO projections. 2-D mediolateral oblique (MLO) and craniocaudad (CC) views of both breasts were obtained. CAD: Full Field Digital Mammography with Computer Added Detection was performed. COMPARISON: Comparison is made with prior study dated October 23, 2021 and September 06, 2020. FINDINGS: Breast Composition: The breasts are heterogeneously dense, which may obscure small masses. There are no dominant masses or suspicious calcifications. Stable small benign-appearing bilateral axillary lymph nodes. No other significant abnormalities are identified. There has been no significant change since the prior study. BI/SCRN MAMM (CAD)W/JANET BILAT IMPRESSION: Stable bilateral screening mammogram. Yearly follow-up mammogram recommended. (A) ASSESSMENT CATEGORY: BIRADS Category 2: Benign. A letter regarding these results will be sent to the patient by the facility within 30 days. Approximately 10% of breast cancers are not detected by mammography. A normal mammogram should not delay biopsy of a clinically suspicious abnormality. [id number] Electronically Signed: Jordy Antonio MD at 9:43 EST ,
== END | disposition home or self-care (01) ==
LOC: OPBI 08:06
PROVIDERS: PCP Family Medicine; Referring Provider Family Medicine; Visit Provider Family Medicine
DX: Z12.31 Encounter for screening mammogram for malignant neoplasm of breast (principal)
CPT/HCPCS: 77063; 77067

== ENCOUNTER → 2024-01-13 | Outpatient (CLI) | payer OTHER, SELFPAY ==
[2024-01-13 12:36] LABS: Absolute Lymphocyte Count 2.13 X10^3/uL (0.83-4.51); Absolute Neutrophil Count 2.4 X10^3/uL (2.0-7.7); Basophil# 0.05 X10^3/uL; Basophil% 0.8 % (0-1); Eosinophil# 0.89 X10^3/uL; Eosinophils% 14.8 % (0-5); Hematocrit 40.5 % (37-47); Hemoglobin 12.6 g/dL (12.0-15.0); Lymphocyte # 2.13 X10^3/ul (0.83-4.51); Lymphocyte % 35.3 % (19-41); Mean Corp Hgb Conc 31.1 g/dL (32-36); Mean Corpuscular Hgb 26.8 pg (27.0-32.0); Mean Platelet Vol. 10.1 fl (6.2-12.0); Monocyte# 0.56 X10^3/uL; Monocyte% 9.3 % (0-10); NRBC Flagged by Analyzer 0 % (0-5); Neutrophil # 2.39 X10^3/uL (2.7-7.7); Neutrophil % 39.6 % (47-70); Platelet Count 331 K/mm3 (150-450); RBC Distribution Width CV 13.3 % (11.6-14.6); RBC Distribution Width SD 41.7 fl (35.1-43.9); Red Blood Count 4.71 M/mm3 (4.2-5.4)
[2024-01-13 13:23] LABS: AST(SGOT) 31 U/L (15-37); Alanine Aminotransfer ALT/SGPT 47 U/L (13-56); Albumin, Serum 3.7 g/dL (3.2-5.0); Alkaline Phosphatase 125 U/L (45-117); Anion Gap 7 (5-15); BUN 18 mg/dL (7-18); BUN/Creat Ratio 20.5 RATIO (10-20); Calcium,Total 9.3 mg/dL (8.5-10.1); Chloride 105 mmol/L (98-107); Cholesterol 220 mg/dL (200); Creatinine, Serum 0.88 mg/dL (0.55-1.02); EST Glomerular Filtration Rate 70 mL/min (>60); Est Glom Filt Rate - Afr Amer 84 mL/min (>60); Globulin 3.8 g/dL (2.2-4.2); Glucose 93 mg/dL (74-106); High Density Lipoprotein 45 mg/dL; Protein, Total 7.5 g/dL (6.4-8.2); Sodium Level 139 mmol/L (136-145); Thyroid Stim Hormone (TSH) 0.49 uIU/mL (0.358-3.74); Triglycerides 183 mg/dL; Very Low Density Lipoprotein 37 mg/dL (5-40)
== END | disposition home or self-care (01) ==
LOC: BFHLAB 08:34
PROVIDERS: PCP Family Medicine; Visit Provider Family Medicine
DX: Z00.00 Encounter for general adult medical examination without abnormal findings (principal); Z13.220 Encounter for screening for lipoid disorders; E04.1 Nontoxic single thyroid nodule
CPT/HCPCS: 36415; 80053; 80061; 84443; 85025

== ENCOUNTER → 2024-01-24 | Outpatient (CLI) | payer BC, SELFPAY ==
--- NOTE | 2024-01-24 10:53 | BI_ITS ---
MAMMOGRAPHY - BILATERAL SCREENING REASON FOR EXAM: Female, 63 years old. Routine annual screening examination. PERTINENT HISTORY: Grandmother with breast cancer. TECHNIQUE: Digital bilateral breast janet (3D mammographic acquisition) in the CC and MLO projections. 2-D mediolateral oblique (MLO) and craniocaudad (CC) views of both breasts were obtained. CAD: Full Field Digital Mammography with Computer Added Detection was performed. COMPARISON: Comparison is made with prior study of January 10, 2023 and October 23, 2021. FINDINGS: Breast Composition: The breasts are heterogeneously dense, which may obscure small masses. There are no dominant masses or suspicious calcifications. Stable small benign-appearing bilateral axillary lymph nodes. No other significant abnormalities are identified. There has been no significant change since the prior study. BI/SCRN MAMM (CAD)W/JANET BILAT IMPRESSION: Stable bilateral screening mammogram. Yearly follow-up mammogram recommended. (A) ASSESSMENT CATEGORY: BIRADS Category 2: Benign. A letter regarding these results will be sent to the patient by the facility within 30 days. Approximately 10% of breast cancers are not detected by mammography. A normal mammogram should not delay biopsy of a clinically suspicious abnormality. [id number] Electronically Signed: Jordy Antonio MD at 12:18 EDT ,
== END | disposition home or self-care (01) ==
PROVIDERS: PCP Family Medicine; Referring Provider Family Medicine; Visit Provider Family Medicine
DX: Z12.31 Encounter for screening mammogram for malignant neoplasm of breast (principal)
CPT/HCPCS: 77063; 77067

== ENCOUNTER → 2025-01-26 | Outpatient (CLI) | payer BC, SELFPAY ==
--- NOTE | 2025-01-26 12:36 | BI_ITS ---
EXAM: PROCEDURE: MA Mammogram Digital Screen CLINICAL HISTORY: Screening COMPARISON: Mammogram studies dated 01/24/2024 and 01/10/2023 TECHNIQUE: A bilateral screening mammogram was obtained with MLO and CC views of both breasts with digital breast tomosynthesis. BREAST CANCER RISK ASSESSMENT: Does not appear to have been calculated. FINDINGS: No suspicious masses, suspicious calcifications or other suspicious mammogram findings are seen in either breast. Benign-appearing round calcifications are seen in both breasts. Stable nodular masslike densities are seen in the left breast. CONCLUSION: Right Breast: BI-RADS category 2, benign findings Left Breast: BI-RADS category 2, benign findings Breast Composition: There are scattered areas of fibroglandular density. Recommendation: Annual screening mammography Thank you for referring your patient to the [facility], if you have any questions, please call us at the performing site listed at the top of the report. [facility] , [facility] , [facility] and [facility] . Reading Location: [id number]
== END | disposition home or self-care (01) ==
LOC: OPBI 12:35
PROVIDERS: PCP Family Medicine; Referring Provider Family Medicine; Visit Provider Family Medicine
DX: Z12.31 Encounter for screening mammogram for malignant neoplasm of breast (principal)
CPT/HCPCS: 77063; 77067

== ENCOUNTER → 2025-01-28 | Outpatient (CLI) | payer BC, SELFPAY ==
[2025-01-28 12:41] LABS: Absolute Lymphocyte Count 1.55 X10^3/uL (0.83-4.51); Absolute Neutrophil Count 2.7 X10^3/uL (2.0-7.7); Basophil# 0.03 X10^3/uL; Basophil% 0.6 % (0-1); Eosinophil# 0.12 X10^3/uL; Eosinophils% 2.6 % (0-5); Hematocrit 41.4 % (37-47); Hemoglobin 13.8 g/dL (12.0-15.0); Lymphocyte # 1.55 X10^3/ul (0.83-4.51); Mean Corp Hgb Conc 33.3 g/dL (32-36); Mean Corpuscular Hgb 28.2 pg (27.0-32.0); Mean Corpuscular Volume 84.7 fL (81-99); Mean Platelet Vol. 10.2 fl (6.2-12.0); Monocyte# 0.32 X10^3/uL; Monocyte% 6.8 % (0-10); NRBC Flagged by Analyzer 0 % (0-5); Neutrophil # 2.67 X10^3/uL (2.7-7.7); Neutrophil % 56.8 % (47-70); Platelet Count 290 K/mm3 (150-450); RBC Distribution Width CV 12.9 % (11.6-14.6); RBC Distribution Width SD 39.5 fl (35.1-43.9); Red Blood Count 4.89 M/mm3 (4.2-5.4); White Blood Count 4.7 K/mm3 (4.4-11.0)
[2025-01-28 13:15] LABS: Rubella IgG REAC (Nonreactive)
[2025-01-28 19:35] LABS: ALB/GLOB Ratio 1.9 RATIO (0.9-2.4); AST(SGOT) 33 U/L (<=31); Alanine Aminotransfer ALT/SGPT 31 U/L (<=34); Albumin, Serum 4.4 g/dL (3.4-4.8); Alkaline Phosphatase 97 U/L (35-104); Anion Gap 14 (5-15); BUN 20 mg/dL (4-19); BUN/Creat Ratio 25.8 RATIO (10-20); Calcium,Total 9.6 mg/dL (7.6-11.0); Carbon Dioxide 21.9 mmol/L (21.0-32.0); Chloride 103 mmol/L (98-108); Creatinine, Serum 0.76 mg/dL (0.70-1.20); EST Glomerular Filtration Rate 88 (>60); Globulin 2.4 g/dL (2.2-4.2); Glucose 88 mg/dL (70-99); Potassium 4.3 mmol/L (3.3-5.1); Protein, Total 6.8 g/dL (5.9-8.4); Sodium Level 139 mmol/L (133-145); Thyroid Stim Hormone (TSH) 0.493 uIU/mL (0.300-4.200); Total Bilirubin 0.33 mg/dL (0.00-1.30)
[2025-01-28 19:56] LABS: Cholesterol 226 mg/dL (<=200); High Density Lipoprotein 54 mg/dL; Low Density Lipoprotein Calc. 135 mg/dL; Triglycerides 184 mg/dL; Very Low Density Lipoprotein 37 mg/dL (5-40)
[2025-01-29 07:07] LABS: Rubeola IgG Ab > 300.0 AU/mL (Immune >16.4)
== END | disposition home or self-care (01) ==
LOC: BIMLAB 08:54 → BFHLAB 09:21
PROVIDERS: PCP Family Medicine; Referring Provider Family Medicine; Visit Provider Family Medicine
DX: Z00.00 Encounter for general adult medical examination without abnormal findings (principal); E04.1 Nontoxic single thyroid nodule; Z13.220 Encounter for screening for lipoid disorders
CPT/HCPCS: 36415; 80053; 80061; 84443; 85025; 86762; 86765

== ENCOUNTER → 2025-09-10 | Outpatient (CLI) | payer BC, SELFPAY ==
--- OUTSIDE RECORDS SUMMARY | 2025-09-10 17:33 | XMS RPT_ITS | CCD ---
Author Organization [facility] Care Team Providers Care [employer] Boss Name Role Phone Dr. Liz Mendoza DO Primary Care Provider [phone] Dr. Liz Mendoza DO Attending Provider [phone] Dr. Liz Mendoza DO Referring Provider Liz Mendoza Referring Unavailable Liz Mendoza Primary Care Unavailable Liz Mendoza Attending Unavailable Liz Mendoza Referring Unavailable Liz Mendoza Primary Care Unavailable Liz Mendoza Attending Unavailable Allergies Allergy Classification Reported Allergen(s) Allergy Type Date of Onset Reaction(s) Facility (3 sources) nut - unspecified; Translations: [nut - unspecified] Allergy to substance 09-02-2015 Anaphylaxis [facility] Medications Current Medications Medication Drug Class(es) Dates Sig (Normalized) Sig (Original) aspirin 81 mg delayed release oral tablet (6 sources) Platelet Aggregation Inhibitor, Nonsteroidal Anti-inflammatory Drug Start: 09-02-2015 take 1 tablet by mouth once daily Aspirin 81 MG tablet Active 81 mg PO DAILY@0800 September 02, 2015 12:00am calcium carbonate 1500 mg / cholecalciferol 800 unt chewable tablet (6 sources) Vitamin D Start: 09-02-2015 take 1 tablet by mouth once daily Ca-D3-Mag Tj-Jvem-Laq-Mo -Bor 1 EACH tablet,chewable Active 1 NMA PO DAILY September 02, 2015 12:00am Start: 09-02-2015 Ca-D3-Mag Ox-Z khm-Uwk-Sjna-Bor Active 1 EACH PO DAILY September 02, 2015 12:00am famotidine 20 mg oral tablet (6 sources) Histamine-2 Receptor Antagonist Start: 09-02-2015 take 1 tablet by mouth twice daily Famotidine 20 MG tablet Active 20 mg PO TWICE A DAY September 02, 2015 12:00am zinc gluconate 50 mg oral tablet (6 sources) Start: 09-02-2015 take 1 tablet by mouth once daily Zinc Gluconate 50 MG tablet Active 50 mg PO DAILY September 02, 2015 12:00am Problems Problem Classification Problem Date Documented Da te Episodic/Chronic Other screening for suspected conditions (not mental disorders or infectious disease) (1 source) Encounter for screening mammogram for malignant neoplasm of breast; Translations: [Encounter for screening mammogram for malignant neoplasm of breast] Onset: 01-30-2025 Episodic Results Test Name Value Interpretation Reference Range Facil ity Rubeola IgG Abon 01-29-2025 RUBEOLA Ab, IgG > 300.0 Normal Immune >16.4 [facility] Comment on above: Result Comment: Nega tive <13.5 Equivocal 13.5 - 16.4 Positive >16.4 Presence of antibodies to Rubeola is presumptive evidence of immunity except when acute infection is suspected. Performed at: [facility] [id number] [employer]: Cornell Thorpe PhD, Phone: [phone] Performed By: #### L 3100.3300, L501.9520, L509.4006, L500.4100, L500.4050, L100.0100 #### [facility] [address] [place], [address] Absolute neutrophil countOrd ered By: Liz Mendoza on 01-28-2025 Neutrophils (Bld) [#/Vol] 2.7 10*3/uL 2.0-7.7 [facility] Anion gap in Serum or Plasma Ordered By: Liz Mendoza on 01-28-2025 Anion gap [Moles/Vol] 14 mmol/L 5-15 [facility] BUN/creatinine ratioOrdered By: Liz Mendoza on 01-28-2025 Urea nitrogen/Creatinine [Mass ratio] 25.8 mg/mg High 10-20 [facility] Basophil percentageOrdered B y: Liz Mendoza on 01-28-2025 Basophils/100 WBC (Bld) 0.6 % 0-[address] [facility] Bilirubin, totalOrdered By: Liz Mendoza on 01-28-2025 Bilirubin [Mass/Vol] 0.33 mg/dL 0.00-1.30 [facility] CBC W/Diff, Automatedon - Absolute Lymph 1.55 X10 3/uL Normal 0.83-4.51 [facility] Comment on above: Performed By: #### L 3100.3300, L501.9520, L509.4006, L500.4100, L500.4050, L100.0100 #### [facility] [address] [place], [address] Absolute Neut 2.7 X10 3/uL Normal 2.0-7.7 [facility] Comment on above: Performed By: #### L 3100.3300, L501.9520, L509.4006, L500.4100, L500.4050, L100.0100 #### [facility] [address] [place], [address] Basophils/100 WBC (Bld) 0.6 % Normal 0-[address] [facility] Comment on above: Performed By: #### L 3100.3300, L501.9520, L509.4006, L500.4100, L500.4050, L100.0100 #### [facility] [address] [place], [address] Eosinophils/100 WBC (Bld) 2.6 % Normal 0-5 [facility] Comment on above: Performed By: #### L 3100.3300, L501.9520, L509.4006, L500.4100, L500.4050, L100.0100 #### [facility] [address] [place], [address] Erythrocyte distribution width (RBC) [Ratio] 12.9 % Normal 11.6-14.6 [facility] Comment on above: Performed By: #### L 3100.3300, L501.9520, L509.4006, L500.4100, L500.4050, L100.0100 #### [facility] [address] [place], [address] Hematocrit (Bld) [Volume fraction] 41.4 % Normal 37-47 [facility] Comment on above: Performed By: #### L 3100.3300, L501.9520, L509.4006, L500.4100, L500.4050, L100.0100 #### [facility] [address] [place], [address] Hemoglobin (Bld) [Mass/Vol] 13.8 g/dL Normal 12.0-15.0 [facility] Comment on above: Performed By: #### L 3100.3300, L501.9520, L509.4006, L500.4100, L500.4050, L100.0100 #### [facility] [address] [place], [address] IG% 0.200 Normal 0.0-0.9 [facility] Comment on above: Result Comment: IG% - Immature Granulocytes (promyelocytes, myelocytes and metamyelocytes) > 1% indicates that a LEFT SHIFT is Present. Performed By: #### L 3100.3300, L501.9520, L509.4006, L500.4100, L500.4050, L100.0100 #### [facility] [address] [place], [address] Lymphocytes/100 WBC (Bld) 33.0 % Normal 19-41 [facility] Comment on above: Performed By: #### L 3100.3300, L501.9520, L509.4006, L500.4100, L500.4050, L100.0100 #### [facility] [address] [place], [address] MCH (RBC) [Entitic mass] 28.2 pg Normal 27.0-32.0 [facility] Comment on above: Performed By: #### L 3100.3300, L501.9520, L509.4006, L500.4100, L500.4050, L100.0100 #### [facility] [address] [place], [address] MCHC (RBC) [Mass/Vol] 33.3 g/dL Normal 32-36 [facility] Comment on above: Performed By: #### L 3100.3300, L501.9520, L509.4006, L500.4100, L500.4050, L100.0100 #### [facility] [address] [place], [address] MCV (RBC) [Entitic vol] 84.7 fL Normal 81-99 [facility] Comment on above: Performed By: #### L 3100.3300, L501.9520, L509.4006, L500.4100, L500.4050, L100.0100 #### [facility] [address] [place], [address] Monocytes/100 WBC (Bld) 6.8 % Normal 0-10 [facility] Comment on above: Performed By: #### L 3100.3300, L501.9520, L509.4006, L500.4100, L500.4050, L100.0100 #### [facility] [address] [place], [address] Neutrophils/100 WBC (Bld) 56.8 % Normal 47-70 [facility] Comment on above: Performed By: #### L 3100.3300, L501.9520, L509.4006, L500.4100, L500.4050, L100.0100 #### [facility] [address] [place], [address] Nucleated RBC (Bld) [#/Vol] 0 10*3/uL Normal 0-5 [facility] Comment on above: Performed By: #### L 3100.3300, L501.9520, L509.4006, L500.4100, L500.4050, L100.0100 #### [facility] [address] [place], [address] Platelet mean volume (Bld) [Entitic vol] 10.2 fL Normal 6.2-12.0 [facility] Comment on above: Performed By: #### L 3100.3300, L501.9520, L509.4006, L500.4100, L500.4050, L100.0100 #### [facility] [address] [place], [address] Platelets (Bld) [#/Vol] 290 10*3/uL Normal 150-450 [facility] Comment on above: Performed By: #### L 3100.3300, L501.9520, L509.4006, L500.4100, L500.4050, L100.0100 #### [facility] [address] [place], [address] RBC (Bld) [#/Vol] 4.89 10*6/uL Normal 4.2-5.4 [facility] Comment on above: Performed By: #### L 3100.3300, L501.9520, L509.4006, L500.4100, L500.4050, L100.0100 #### [facility] [address] [place], [address] RDW SD 39.5 fl Normal 35.1-43.9 [facility] Comment on above: Performed By: #### L 3100.3300, L501.9520, L509.4006, L500.4100, L500.4050, L100.0100 #### [facility] [address] [place], [address] WBC (Bld) [#/Vol] 4.7 10*3/uL Normal 4.4-11.0 [facility] Comment on above: Performed By: #### L 3100.3300, L501.9520, L509.4006, L500.4100, L500.4050, L100.0100 #### [facility] [address] [place], [address] Calculated very low density lipoprotein (VLDL) cholesterol measurementOrdered By: Liz Mendoza on 01-28-2025 VLDL Cholesterol 37 mg/dL 5-40 [facility] Carbon dioxide, total [Moles /volume] in Central venous bloodOrdered By: Liz Mendoza on 01-28-2025 CO2 [Moles/Vol] 21.9 mmol/L 21.0-32.0 [facility] Chloride assayOrdered By: Neisha Mendoza on 01-28-2025 Chloride [Moles/Vol] 103 mmol/L 98-108 [facility] Comprehensive Metabolic Prof ilon 01-28-2025 Albumin [Mass/Vol] 4.4 g/dL Normal 3.4-4.8 [facility] Comment on above: Performed By: #### L 3100.3300, L501.9520, L509.4006, L500.4100, L500.4050, L100.0100 #### [facility] [address] [facility] [place], [address] Albumin/Globulin [Mass ratio] 1.9 {ratio} Normal 0.9-2.4 [facility] Comment on above: Performed By: #### L 3100.3300, L501.9520, L509.4006, L500.4100, L500.4050, L100.0100 #### [facility] [address] [place], [address] ALK PHOS 97 U/L Normal 35-104 [facility] Comment on above: Performed By: #### L 3100.3300, L501.9520, L509.4006, L500.4100, L500.4050, L100.0100 #### [facility] [address] [place], [address] ALT [Catalytic activity/Vol] 31 U/L Normal <=34 [facility] Comment on above: Performed By: #### L 3100.3300, L501.9520, L509.4006, L500.4100, L500.4050, L100.0100 #### [facility] [address] [place], [address] AST [Catalytic activity/Vol] 33 U/L High <=31 [facility] Comment on above: Performed By: #### L 3100.3300, L501.9520, L509.4006, L500.4100, L500.4050, L100.0100 #### [facility] [address] [place], [address] Bilirubin [Mass/Vol] 0.33 mg/dL Normal 0.00-1.30 [facility] Comment on above: Performed By: #### L 3100.3300, L501.9520, L509.4006, L500.4100, L500.4050, L100.0100 #### [facility] [address] [place], [address] BUN/CRE 25.8 RATIO High 10-20 [facility] Comment on above: Performed By: #### L 3100.3300, L501.9520, L509.4006, L500.4100, L500.4050, L100.0100 #### [facility] [address] [place], [address] Calcium [Mass/Vol] 9.6 mg/dL Normal 7.6-11.0 [facility] Comment on above: Performed By: #### L 3100.3300, L501.9520, L509.4006, L500.4100, L500.4050, L100.0100 #### [facility] [address] [place], [address] Chloride [Moles/Vol] 103 mmol/L Normal 98-108 [facility] Comment on above: Performed By: #### L 3100.3300, L501.9520, L509.4006, L500.4100, L500.4050, L100.0100 #### [facility] [address] [place], [address] CO2 [Moles/Vol] 21.9 mmol/L Normal 21.0-32.0 [facility] Comment on above: Performed By: #### L 3100.3300, L501.9520, L509.4006, L500.4100, L500.4050, L100.0100 #### [facility] [address] [place], [address] Creatinine [Mass/Vol] 0.76 mg/dL Normal 0.70-1.20 [facility] Comment on above: Performed By: #### L 3100.3300, L501.9520, L509.4006, L500.4100, L500.4050, L100.0100 #### [facility] [address] [place], [address] GAP 14 Normal 5-15 [facility] Comment on above: Performed By: #### L 3100.3300, L501.9520, L509.4006, L500.4100, L500.4050, L100.0100 #### [facility] [address] [place], [address] GFR/1.73 sq M.predicted among non-blacks MDRD (S/P/Bld) [Vol rate/Area] 88 mL/min/{1.73_m2} Normal >60 [facility] Comment on above: Result Comment: mL/m in/1.73m2 CKD-EPI Creatinine Equation (2020) Performed By: #### L 3100.3300, L501.9520, L509.4006, L500.4100, L500.4050, L100.0100 #### [facility] [address] [place], [address] Globulin (S) [Mass/Vol] 2.4 g/dL Normal 2.2-4.2 [facility] Comment on above: Performed By: #### L 3100.3300, L501.9520, L509.4006, L500.4100, L500.4050, L100.0100 #### [facility] [address] [place], [address] Glucose [Mass/Vol] 88 mg/dL Normal 70-99 [facility] Comment on above: Performed By: #### L 3100.3300, L501.9520, L509.4006, L500.4100, L500.4050, L100.0100 #### [facility] [address] [place], [address] Potassium [Moles/Vol] 4.3 mmol/L Normal 3.3-5.1 [facility] Comment on above: Performed By: #### L 3100.3300, L501.9520, L509.4006, L500.4100, L500.4050, L100.0100 #### [facility] [address] [place], [address] Sodium [Moles/Vol] 139 mmol/L Normal 133-145 [facility] Comment on above: Performed By: #### L 3100.3300, L501.9520, L509.4006, L500.4100, L500.4050, L100.0100 #### [facility] [address] [place], [address] T PROT 6.8 g/dL Normal 5.9-8.4 [facility] Comment on above: Performed By: #### L 3100.3300, L501.9520, L509.4006, L500.4100, L500.4050, L100.0100 #### [facility] [address] [place], [address] Urea nitrogen [Mass/Vol] 20 mg/dL High 4-19 [facility] Comment on above: Performed By: #### L 3100.3300, L501.9520, L509.4006, L500.4100, L500.4050, L100.0100 #### [facility] [address] [place], [address] Eosinophil percentageOrdered By: Liz Mendoza on 01-28-2025 Eosinophils/100 WBC (Bld) 2.6 % 0-5 [facility] Erythrocyte distribution wid th ratioOrdered By: Liz Mendoza on 01-28-2025 Erythrocyte distribution width (RBC) [Ratio] 12.9 % 11.6-14.6 [facility] Erythrocyte distribution wid th standard deviationOrdered By: Liz Mendoza on 01-28-2025 Erythrocyte distribution width (RBC) [Entitic vol] 39.5 fL 35.1-43.9 [facility] GFR/1.73 sq M.predicted colby g non-blacks MDRD (S/P/Bld) [Vol rate/Area]Ordered By: Liz Mendoza on 01-28-2025 Estimated GFR (MDRD) Non-Af Amer 88 >60 [facility] Comment on above: mL/min/1.73m2 CKD-EP I Creatinine Equation (2020) Hematocrit Auto (Bld) [Volum e fraction]Ordered By: Liz Mendoza on 01-28-2025 Hematocrit (Bld) [Volume fraction] 41.4 % 37-47 [facility] Hemoglobin measurementOrdere d By: Liz Mendoza on 01-28-2025 Hemoglobin (Bld) [Mass/Vol] 13.8 g/dL 12.0-15.0 [facility] Immature granulocytes/100 WB C Auto (Bld)Ordered By: Liz Mendoza on 01-28-2025 Immature granulocytes/100 WBC (Bld) 0.200 % 0.0-0.9 [facility] Comment on above: IG% - Immature Granu locytes (promyelocytes, myelocytes and metamyelocytes) > 1% indicates that a LEFT SHIFT is Present. L509.4006on 01-28-2025 Rubella IgG REAC Normal Nonreactive [facility] Comment on above: Result Comment: Anti body Result: Interpretation Non-Reactive: Non-Immune Reactive: Immune The following results were obtained with the [employer] Rubella IgG assay. Results from assays of other manufacturers cannot be used interchangeably. Performed By: #### L 3100.3300, L501.9520, L509.4006, L500.4100, L500.4050, L100.0100 #### [facility] [address] [place], [place], [address] LDL calc ser/plasOrdered By: Liz Mendoza on 01-28-2025 LDL Cholesterol, Calculated 135 mg/dL [facility] Comment on above: Swqroyytne=747-512 m g/dL & Higher Nnnr=535 mg/dL or greater Laboratory - Chemistry and C hemistry - challengeOrdered By: Liz Mendoza on 01-28-2025 AST [Catalytic activity/Vol] 33 U/L High <32 [facility] Lipid Profileon 01-28-2025 CHOL:HDL 4.20 Normal [facility] Comment on above: Performed By: #### L 3100.3300, L501.9520, L509.4006, L500.4100, L500.4050, L100.0100 #### [facility] [address] [place], [place], [address] Cholesterol [Mass/Vol] 226 mg/dL High <=200 [facility] Comment on above: Result Comment: Chol esterol level, Desirable <200 mg/dL Borderline high cholesterol 200-239 mg/dL High cholesterol >=240 mg/dL Recommendations of the NCEP Adult Treatment Panel for the following risk-cutoff thresholds for the [place] population. Performed By: #### L 3100.3300, L501.9520, L509.4006, L500.4100, L500.4050, L100.0100 #### [facility] [address] [place], [address] Cholesterol in HDL [Mass/Vol] 54 mg/dL Normal [facility] Comment on above: Result Comment: Susi onal Cholesterol Education Program (NCEP) guidelines: <40 mg/dL: Low HDL-cholesterol (major risk factor for CHD) >= 60 mg/dL: High HDL-cholesterol (negative risk factor for CHD) HDL-cholesterol is affected by a number of factors, e.g. smoking, exercise, hormones, sex and age. Performed By: #### L 3100.3300, L501.9520, L509.4006, L500.4100, L500.4050, L100.0100 #### [facility] [address] [place], [address] Cholesterol in LDL [Mass/Vol] 135 mg/dL Normal [facility] Comment on above: Result Comment: Bord msmrpc=583-599 mg/dL Higher Smfn=067 mg/dL or greater Performed By: #### L 3100.3300, L501.9520, L509.4006, L500.4100, L500.4050, L100.0100 #### [facility] [address] [place], [address] Cholesterol in VLDL [Mass/Vol] 37 mg/dL Normal 5-40 [facility] Comment on above: Performed By: #### L 3100.3300, L501.9520, L509.4006, L500.4100, L500.4050, L100.0100 #### [facility] [address] [place], [address] Triglyceride [Mass/Vol] 184 mg/dL Normal [facility] Comment on above: Result Comment: The drugs N-Acetylcysteine and Metamizole may falsely depress this assay. Normal range: <150 mg/dL Borderline High: 150-199 mg/dL High: 200-499 mg/dL Very High: >500 mg/dL Performed By: #### L 3100.3300, L501.9520, L509.4006, L500.4100, L500.4050, L100.0100 #### [facility] [place], [address] Lymphocytes Auto (Unsp spec) [#/Vol]Ordered By: Liz Mendoza on 01-28-2025 Lymphocytes (Bld) [#/Vol] 1.55 10*3/uL 0.83-4.51 [facility] Lymphocytes/100 WBC Auto (Un sp spec)Ordered By: Liz Mendoza on 01-28-2025 Lymphocytes/100 WBC (Bld) 33.0 % 19-41 [facility] MCV (mean corpuscular volume ) determinationOrdered By: Liz Mendoza on 01-28-2025 MCV (RBC) [Entitic vol] 84.7 fL 81-[address] [facility] MeV IgG IA Qn (S)Ordered By: Liz Mendoza on 01-28-2025 Rubeola (Measles) IgG Antibody > 300.0 AU/mL Immune >16.4 [facility] Comment on above: Negative <13.5 Equiv ocal 13.5 - 16.4 Positive >16.4Presence of antibodies to Rubeola is presumptive evidenceof immunity except when acute infection is suspected.Performed at: - [facility] [id number] Director: Cornell hTorpe PhD, Phone: [phone] Mean corpuscular hemoglobin (MCH) determinationOrdered By: Liz Mendoza on 01-28-2025 MCH (RBC) [Entitic mass] 28.2 pg 27.0-32.0 [facility] Mean corpuscular hemoglobin concentration (MCHC) determinationOrdered By: Liz Mendoza on 01-28-2025 MCHC (RBC) [Mass/Vol] 33.3 g/dL 32-36 [facility] Mean platelet volume determi nationOrdered By: Liz Mendoza on 01-28-2025 Platelet mean volume (Bld) [Entitic vol] 10.2 fL 6.2-12.0 [facility] Monocyte percentageOrdered B y: Liz Mendoza on 01-28-2025 Monocytes/100 WBC (Bld) 6.8 % 0-[address] [facility] Neutrophil percentageOrdered By: Liz Mendoza on 01-28-2025 Neutrophils/100 WBC (Bld) 56.8 % 47-70 [facility] Nucleated red blood cell per centageOrdered By: Liz Mendoza on 01-28-2025 Nucleated RBC/100 WBC (Bld) [Ratio] 0 % 0-5 [facility] Platelet countOrdered By: Neisha Mendoza on 01-28-2025 Platelets (Bld) [#/Vol] 290 10*3/uL 150-450 [facility] Potassium (Unsp spec) [Mass/ Vol]Ordered By: Liz Mendoza on 01-28-2025 Potassium [Moles/Vol] 4.3 mmol/L 3.3-5.1 [facility] RBC Auto (Bld) [#/Vol]Ordere d By: Liz Mendoza on 01-28-2025 RBC (Bld) [#/Vol] 4.89 10*6/uL 4.2-5.4 [facility] Rubella immune status determ ination by IgG antibody assayOrdered By: Liz Mendoza on 01-28-2025 Rubella IgG Antibody REAC Nonreactive [facility] Comment on above: Antibody Result: Int erpretationNon-Reactive: Non-ImmuneReactive: ImmuneThe following results were obtained with the [employer] Rubella IgG assay. Results from assays of other manufacturers cannot be used interchangeably. Screening total cholesterol/ high density lipoprotein (HDL) cholesterol ratioOrdered By: Liz Mendoza on 01-28-2025 Cholesterol.total/Choles terol in HDL [Mass ratio] 4.20 {ratio} [facility] Serum creatinine measurement (mass/volume)Ordered By: Liz Mendoza on 01-28-2025 Creatinine [Mass/Vol] 0.76 mg/dL 0.70-1.20 [facility] Serum globulin measurementOr dered By: Liz Mendoza on 01-28-2025 Globulin (S) [Mass/Vol] 2.4 g/dL 2.2-4.[address] [facility] Serum glucose measurement (m ass/volume)Ordered By: Liz Mendoza on 01-28-2025 Glucose [Mass/Vol] 88 mg/dL 70-99 [facility] Serum or plasma alanine carrasco otransferase (ALT) measurementOrdered By: Liz Mendoza on 01-28-2025 ALT [Catalytic activity/Vol] 31 U/L <35 [facility] Serum or plasma albumin maricarmen urement (mass/volume)Ordered By: Liz Mendoza on 01-28-2025 Albumin [Mass/Vol] 4.4 g/dL 3.4-4.8 [facility] Serum or plasma albumin/glob ulin mass ratioOrdered By: Liz Mendoza on 01-28-2025 Albumin/Globulin [Mass ratio] 1.9 {ratio} 0.9-2.4 [facility] Serum or plasma alkaline erika sphatase measurementOrdered By: Liz Mendoza on 01-28-2025 ALP [Catalytic activity/Vol] 97 U/L 35-104 [facility] Serum or plasma calcium maricarmen urement (mass/volume)Ordered By: Liz Mendoza on 01-28-2025 Calcium [Mass/Vol] 9.6 mg/dL 7.6-11.0 [facility] Serum or plasma cholesterol in HDL measurement (mass/volume)Ordered By: Liz Mendoza on 01-28-2025 Cholesterol in HDL [Mass/Vol] 54 mg/dL >40 [facility] Comment on above: National Cholesterol Education Program (NCEP) guidelines:<40 mg/dL: Low HDL-cholesterol (major risk factor for CHD)>= 60 mg/dL: High HDL-cholesterol (negative risk factor for CHD)HDL-cholesterol is affected by a number of factors, e.g. smoking, exercise, hormones, sex and age. Serum or plasma cholesterol measurement (mass/volume)Ordered By: Liz Mendoza on 01-28-2025 Cholesterol [Mass/Vol] 226 mg/dL High <201 [facility] Comment on above: Cholesterol level, D esirable <200 mg/dLBorderline high cholesterol 200-239 mg/dLHigh cholesterol >=240 mg/dLRecommendations of the NCEP Adult Treatment Panel for the following risk-cutoff thresholds for the [place] population. Serum or plasma urea nitroge n measurement (mass/volume)Ordered By: Liz Mendoza on 01-28-2025 Urea nitrogen [Mass/Vol] 20 mg/dL High 4-19 [facility] Sodium levelOrdered By: Liz Mendoza on 01-28-2025 Sodium [Moles/Vol] 139 mmol/L 133-145 [facility] TSH DL <= 0.005 mIU/L QnOrde red By: Liz Mendoza on 01-28-2025 Thyroid Stimulating Hormone (TSH) 0.493 uIU/mL 0.300-4.200 [facility] Thyroid Stim Hormone (TSH)on 01-28-2025 TSH 0.493 uIU/mL Normal 0.300-4.200 [facility] Comment on above: Performed By: #### L 3100.3300, L501.9520, L509.4006, L500.4100, L500.4050, L100.0100 #### [facility] [address] [place], [address] Total proteinOrdered By: Kadie Mendoza on 01-28-2025 Protein [Mass/Vol] 6.8 g/dL 5.9-8.4 [facility] Triglycerides measurementOrd ered By: Liz Mendoza on 01-28-2025 Triglyceride [Mass/Vol] 184 mg/dL <[address] [facility] Comment on above: The drugs N-Acetylcy steine and Metamizole may falsely depress this assay. Normal range: <150 mg/dLBorderline High: 150-199 mg/dLHigh: 200-499 mg/dLVery High: >500 mg/dL White blood cell (WBC) count Ordered By: Liz Mendoza on 01-28-2025 WBC (Bld) [#/Vol] 4.7 10*3/uL 4.4-11.0 [facility] Breast imaging reportOrdered By: Katelin Guerra on 01-27-2025 Study report [facility] [address] [place] [address] SCRN MAMM (CAD)W/JANET BILAT MR#: [id number] Acct: [id number] Name: KENNEYMANIKVNG CHRIS Rep #: [id number] : 1960 F 64 From: Morris Guerra DO PCP: Dr. Liz Mendoza DO Status: REG CLI Study:SCRN MAMM (CAD)W/JANET BILAT Date of Exa m: 01/26/25 Exam# [id number] Ordering Dr: Neisha Mendoza sa, DO EXAM: PROCEDURE: MA Mammogram Digital Screen CLINICAL HISTORY: Screening COMPARISON: Mammogram studies dated 01/24/2024 and 01/10/2023 TECHNIQUE: A bilateral screening mammogram was obtained with MLO and CC views of both breasts with digital breast tomosynthesis. BREAST CANCER RISK ASSESSMENT: Does not appear to have been calculated. FINDINGS: No suspicious masses, suspicious calcifications or other suspicious mammogram findings are seen in either breast. Benign-appearing round calcifications are seen in both breasts. Stable nodular masslike densities are seen in the left breast. CONCLUSION: Right Breast: BI-RADS category 2, benign findings Left Breast: BI-RADS category 2, benign findings Breast Composition: There are scattered areas of fibroglandular density. Recommendation: Annual screening mammography Thank you for referring your patient to the [facility], if you have any questions, please call us at the performing site listed at the top of the report. [facility] , [facility] , [facility] and [facility] . Reading Location: [id number] CC: Dr. 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 Liz Mendoza DO Status: REG CLI Study: SCRN MAMM (CAD)W/JANET BILAT Date of Exam: 01/03 03/28 Exam# [id number] Ordering Dr: Liz Mendoza DO EXAM: PROCEDURE: MA Mammogram Digital Screen CLINICAL HISTORY: Screening COMPARISON: Mammogram studies dated 01/24/2024 and 01/10/2023 TECHNIQUE: A bilateral screening mammogram was obtained with MLO and CC views of both breasts with digital breast tomosynthesis. BREAST CANCER RISK ASSESSMENT: Does not appear to have been calculated. FINDINGS: No suspicious masses, suspicious calcifications or other suspicious mammogram findings are seen in either breast. Benign-appearing round calcifications are seen in both breasts. Stable nodular masslike densities are seen in the left breast. CONCLUSION: Right Breast: BI-RADS category 2, benign findings Left Breast: BI-RADS category 2, benign findings Breast Composition: There are scattered areas of fibroglandular density. Recommendation: Annual screening mammography Thank you for referring your patient to the [facility], if you have any questions, please call us at the performing site listed at the top of the report. [facility] , [facility] , [facility] and [facility] . Reading Location: [id number] CC: Dr. 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 Bilirubin [Mass/Vol] 0.50 mg/dL 0.20-1.00 [facility] Comment on above: For patients on eltr ombopag therapy, use of Dimension Gilbert TBIL is not recommended. Chloride [Moles/Vol] 105 mmol/L 98-107 [facility] Cholesterol [Mass/Vol] 220 mg/dL <200 [facility] Comment on above: <200 mg/dL Desirable 200-240 mg/dL Borderline >240 mg/dL High Risk Eosinophils/100 WBC (Bld) 14.8 % 0-5 [facility] Glucose [Mass/Vol] 93 mg/dL 74-106 [facility] Hemoglobin (Bld) [Mass/Vol] 12.6 g/dL 12.0-15.0 [facility] Monocytes/100 WBC (Bld) 9.3 % 0-10 [facility] Neutrophils (Bld) [#/Vol] 2.4 10*3/uL 2.0-7.7 [facility] Neutrophils/100 WBC (Bld) 39.6 % 47-70 [facility] Potassium [Moles/Vol] 4.0 mmol/L 3.5-5.1 [facility] Protein [Mass/Vol] 7.5 g/dL 6.4-8.2 [facility] Sodium [Moles/Vol] 139 mmol/L 136-145 [facility] Triglyceride [Mass/Vol] 183 mg/dL <199 [facility] Comment on above: The drugs N-Acetylcy steine and Metamizole may falsely depress this assay.Serum Triglycerides Reference Interval Normal <150 mg/dL Borderline high 150 - 199 mg/dL High 200 - 499 mg/dL Very High > or = 500 mg/dL WBC (Bld) [#/Vol] 6.0 10*3/uL 4.4-11.0 [facility] Determination of erythrocyte mean corpuscular volume (MCV)Ordered By: Liz Mendoza on 01-13-2024 MCV (RBC) [Entitic vol] 86.0 fL 81-99 [facility] Erythrocyte distribution wid th ratioOrdered By: Liz Mendoza on 01-13-2024 Erythrocyte distribution width (RBC) [Ratio] 13.3 % 11.6-14.6 [facility] Erythrocyte distribution wid th standard deviationOrdered By: Liz Mendoza on 01-13-2024 Erythrocyte distribution width (RBC) [Entitic vol] 41.7 fL 35.1-43.9 [facility] Hematocrit Auto (Bld) [Volum e fraction]Ordered By: Liz Mendoza on 01-13-2024 Hematocrit (Bld) [Volume fraction] 40.5 % 37-47 [facility] Immature granulocytes/100 WB C Auto (Bld)Ordered By: Liz Mendoza on 01-13-2024 Immature granulocytes/100 WBC (Bld) 0.200 % 0.0-0.9 [facility] Comment on above: IG% - Immature Granu locytes (promyelocytes, myelocytes and metamyelocytes) > 1% indicates that a LEFT SHIFT is Present. Laboratory - Chemistry and C hemistry - challengeOrdered By: Liz Mendoza on 01-13-2024 Albumin/Globulin [Mass ratio] 1.0 {ratio} 0.9-2.4 [facility] ALP [Catalytic activity/Vol] 125 U/L 45-117 [facility] ALT [Catalytic activity/Vol] 47 U/L 13-56 [facility] Cholesterol in HDL [Mass/Vol] 45 mg/dL >40 [facility] Comment on above: The drugs N-Acetylcy steine and Metamizole may falsely depress this assay. Reference Range HDL <40 mg/dL Low HDL Cholesterol HDL >or= 60 mg/dL High HDL Cholesterol Cholesterol in LDL [Mass/Vol] 138 mg/dL 0-130 [facility] CO2 [Moles/Vol] 27.0 mmol/L 21.0-32.0 [facility] Globulin (S) [Mass/Vol] 3.8 g/dL 2.2-4.[address] [facility] Urea nitrogen/Creatinine [Mass ratio] 20.5 mg/mg 10-20 [facility] - Hematology and Cell countsOrdered By: Liz Mendoza on 01-13-2024 MCH (RBC) [Entitic mass] 26.8 pg 27.0-32.0 [facility] MCHC (RBC) [Mass/Vol] 31.1 g/dL 32-36 [facility] Nucleated RBC/100 WBC (Bld) [Ratio] 0 % 0-5 [facility] Platelet mean volume (Bld) [Entitic vol] 10.1 fL 6.2-12.0 [facility] Platelets (Bld) [#/Vol] 331 10*3/uL 150-450 [facility] No Panel InformationOrdered By: Liz Mendoza on 01-13-2024 Estimated GFR (MDRD) Amer 84 mL/min >60 [facility] Comment on above: GFR Calc Estimated GFR (MDRD) Non-Af Amer 70 mL/min >60 [facility] Comment on above: Non- GFR Calc VLDL Cholesterol 37 mg/dL 5-40 [facility] RBC Auto (Bld) [#/Vol]Ordere d By: Liz Mendoza on 01-13-2024 RBC (Bld) [#/Vol] 4.71 10*6/uL 4.2-5.4 [facility] Serum or plasma calcium maricarmen urement (mass/volume)Ordered By: Liz Mendoza on 01-13-2024 Calcium [Mass/Vol] 9.3 mg/dL 8.5-10.1 [facility] Serum or plasma creatinine m easurement (mass/volume)Ordered By: Liz Mendoza on 01-13-2024 Creatinine [Mass/Vol] 0.88 mg/dL 0.55-1.02 [facility] Comment on above: The validity of the calculated GFR & GFRAA in patients over 70 years has not been determined. Clinical correlation is essential. Serum or plasma thyroid stim ulating hormone (TSH) measurement (units/volume)Ordered By: Liz Mendoza on 01-13-2024 TSH Qn 0.49 uIU/mL 0.358-3.74 [facility] Serum or plasma urea nitroge n measurement (mass/volume)Ordered By: Liz Mendoza on 01-13-2024 Urea nitrogen [Mass/Vol] 18 mg/dL 7-18 [facility] Thin prep Papanicolaou smear with manual screeningOrdered By: Liz Mendoza on 01-13-2024 Thin prep Papanicolaou smear with manual screening 3.7 g/dL 3.2-5.0 [facility] Thin prep Papanicolaou smear with manual screening 31 U/L 15-37 [facility] Thin prep Papanicolaou smear with manual screening 7 5-15 [facility] Absolute lymphocyte countOrd ered By: Dr. Mendoza on 11-08-2022 Lymphocytes Auto (Unsp spec) [#/Vol] 1.63 10*3/uL 0.83-4.51 [facility] Basophil percentageOrdered B y: Dr. Mendoza on 11-08-2022 Basophils/100 WBC (Bld) 0.6 % 0-[address] [facility] Bilirubin [Mass/Vol] 0.50 mg/dL 0.20-1.00 [facility] Comment on above: For patients on eltr ombopag therapy, use of Dimension Gilbert TBIL is not recommended. Chloride [Moles/Vol] 103 mmol/L 98-107 [facility] Cholesterol [Mass/Vol] 198 mg/dL <200 [facility] Comment on above: <200 mg/dL Desirable 200-240 mg/dL Borderline >240 mg/dL High Risk Eosinophils/100 WBC (Bld) 4.5 % 0-5 [facility] Glucose [Mass/Vol] 96 mg/dL 74-106 [facility] Neutrophils (Bld) [#/Vol] 2.8 10*3/uL 2.0-7.7 [facility] Neutrophils/100 WBC (Bld) 54.1 % 47-70 [facility] Potassium [Moles/Vol] 4.7 mmol/L 3.5-5.1 [facility] Protein [Mass/Vol] 8.0 g/dL 6.4-8.2 [facility] Sodium [Moles/Vol] 137 mmol/L 136-145 [facility] Triglyceride [Mass/Vol] 209 mg/dL <[address] [facility] Comment on above: The drugs N-Acetylcy steine and Metamizole may falsely depress this assay.Serum Triglycerides Reference Interval Normal <150 mg/dL Borderline high 150 - 199 mg/dL High 200 - 499 mg/dL Very High > or = 500 mg/dL WBC (Bld) [#/Vol] 5.1 10*3/uL 4.4-11.0 [facility] Blood erythrocytes count (nu mber/volume)Ordered By: Dr. Mendoza on 11-08-2022 RBC (Bld) [#/Vol] 4.77 10*6/uL 4.2-5.4 [facility] Blood hemoglobin measurement (mass/volume)Ordered By: Dr. Mendoza on 11-08-2022 Hemoglobin (Bld) [Mass/Vol] 13.3 g/dL 12.0-15.0 [facility] Blood lymphocytes/100 leukoc ytesOrdered By: Dr. Mendoza on 11-08-2022 Lymphocytes/100 WBC (Bld) 32.1 % 19-41 [facility] Blood monocytes/100 leukocyt esOrdered By: Dr. Mendoza on 11-08-2022 Monocytes/100 WBC (Bld) 8.3 % 0-[address] [facility] Blood platelet mean volumeOr dered By: Dr. Mendoza on 11-08-2022 Platelet mean volume (Bld) [Entitic vol] 10.2 fL 6.2-12.0 [facility] Determination of erythrocyte mean corpuscular volume (MCV)Ordered By: Dr. Mendoza on 11-08-2022 MCV (RBC) [Entitic vol] 86.0 fL 81-[address] [facility] Hematocrit Auto (Bld) [Volum e fraction]Ordered By: Dr. Mendoza on 11-08-2022 Hematocrit (Bld) [Volume fraction] 41.0 % 37-47 [facility] - Chemistry and C hemistry - challengeOrdered By: Dr. Mendoza on 11-08-2022 ALP [Catalytic activity/Vol] 151 U/L 45-117 [facility] ALT [Catalytic activity/Vol] 71 U/L 13-56 [facility] CO2 [Moles/Vol] 30.0 mmol/L 21.0-32.0 [facility] Globulin (S) [Mass/Vol] 4.0 g/dL 2.2-4.2 [facility] Urea nitrogen/Creatinine [Mass ratio] 27.4 mg/mg 10-20 [facility] - Hematology and Cell countsOrdered By: Dr. Mendoza on 11-08-2022 Erythrocyte distribution width (RBC) [Entitic vol] 41.6 fL 35.1-43.9 [facility] Erythrocyte distribution width (RBC) [Ratio] 13.2 % 11.6-14.6 [facility] Immature granulocytes/100 WBC (Bld) 0.400 % 0.0-0.9 [facility] Comment on above: IG% - Immature Granu locytes (promyelocytes, myelocytes and metamyelocytes) > 1% indicates that a LEFT SHIFT is Present. MCH (RBC) [Entitic mass] 27.9 pg 27.0-32.0 [facility] Nucleated RBC/100 WBC (Bld) [Ratio] 0 % 0-5 [facility] MCHC Auto (RBC) [Mass/Vol]Or dered By: Dr. Mendoza on 11-08-2022 MCHC (RBC) [Mass/Vol] 32.4 g/dL 32-36 [facility] No Panel InformationOrdered By: Dr. Mendoza on 11-08-2022 Estimated GFR (MDRD) Amer 99 mL/min >60 [facility] Comment on above: GFR Calc Estimated GFR (MDRD) Non-Af Amer 82 mL/min >60 [facility] Comment on above: Non- GFR Calc Thyroid Stimulating Hormone (TSH) 0.45 uIU/mL 0.358-3.74 [facility] Platelets bldOrdered By: Dr. Mendoza on 11-08-2022 Platelets (Bld) [#/Vol] 333 10*3/uL 150-450 [facility] Serum or plasma albumin maricarmen urement (mass/volume)Ordered By: Dr. Mendoza on 11-08-2022 Albumin [Mass/Vol] 4.0 g/dL 3.2-5.0 [facility] Serum or plasma albumin/glob ulin mass ratioOrdered By: Dr. Mendoza on 11-08-2022 Albumin/Globulin [Mass ratio] 1.0 {ratio} 0.9-2.4 [facility] Serum or plasma calcium maricarmen urement (mass/volume)Ordered By: Dr. Mendoza on 11-08-2022 Calcium [Mass/Vol] 9.6 mg/dL 8.5-10.1 [facility] Serum or plasma cholesterol in HDL measurement (mass/volume)Ordered By: Dr. Mendoza on 11-08-2022 Cholesterol in HDL [Mass/Vol] 40 mg/dL >40 [facility] Comment on above: The drugs N-Acetylcy steine and Metamizole may falsely depress this assay. Reference Range HDL <40 mg/dL Low HDL Cholesterol HDL >or= 60 mg/dL High HDL Cholesterol Serum or plasma cholesterol in VLDL measurement (mass/volume)Ordered By: Dr. Mendoza on 11-08-2022 Cholesterol in VLDL [Mass/Vol] 42 mg/dL 5-40 [facility] Serum or plasma creatinine m easurement (mass/volume)Ordered By: Dr. Mendoza on 11-08-2022 Creatinine [Mass/Vol] 0.77 mg/dL 0.55-1.02 [facility] Comment on above: The validity of the calculated GFR & GFRAA in patients over 70 years has not been determined. Clinical correlation is essential. Serum or plasma low density lipoprotein (LDL) cholesterol measurement (mass/volume)Ordered By: Dr. Mendoza on 11-08-2022 Cholesterol in LDL [Mass/Vol] 116 mg/dL 0-130 [facility] Serum or plasma urea nitroge n measurement (mass/volume)Ordered By: Dr. Mendoza on 11-08-2022 Urea nitrogen [Mass/Vol] 21 mg/dL 7-18 [facility] Thin prep Papanicolaou smear with manual screeningOrdered By: Dr. Mendoza on 11-08-2022 Thin prep Papanicolaou smear with manual screening 36 U/L 15-37 [facility] Thin prep Papanicolaou smear with manual screening 4 5-15 [facility] Encounters Encounter Date Encounter Type Care Provider Facility Start: 02-01-2025 Encounter for genera l adult medical examination without abnormal findings Liz Mendoza [facility] Start: 01-28-2025 End: 01-28-[address] Liz Mendoza DO Work Phone: [facility] Work Phone: Start: 01-28-2025 End: 01-28-[address] Liz Mendoza DO -[facility], [facility] Start: 01-28-2025 End: 01-28-2025 ambulatory Liz Mendoza Facility:[facility] Start: 01-26-2025 End: 01-26-[address] Liz Mendoza DO Work Phone: [facility] Work Phone: Start: 01-26-2025 End: 01-26-[address] Liz Mendoza DO -[facility] Work Phone: Start: 01-26-2025 End: 01-26-2025 ambulatory Liz Mendoza Facility:[facility] Start: 01-24-2024 End: 01-24-2024 ambulatory [facility] Work Phone: Start: 01-24-2024 End: 01-24-2024 Patient encounter procedure [facility] Work Phone: Start: 01-13-2024 End: 01-13-2024 ambulatory [facility] Work Phone: Start: 01-13-2024 End: 01-13-2024 Patient encounter procedure [facility], [facility] Start: 01-10-2023 End: 01-10-2023 ambulatory [facility] Work Phone: Start: 01-10-2023 End: 01-10-2023 Patient encounter procedure [facility] Start: 12-13-2022 End: 12-13-2022 Patient encounter procedure [facility] - [facility] Start: 11-08-2022 End: 11-08-2022 ambulatory [facility] Work Phone: Start: 11-08-2022 End: 11-08-2022 Patient encounter procedure [facility] Procedures Date Procedure Procedure Detail Performing Clinician Start: 01-26-2025 Screening mammography D karissa Mendoza DO Work Phone: Start: 01-24-2024 Screening mammography Start: 01-10-2023 Screening mammography Start: 12-13-2022 MRI of joint of lowe r extremity Payers Date Payer Category Payer Self-pay [id number] Unknown [id number] 2013 Unknown [facility] [id number] Unknown [id number] Unknown [id number] Social History Date Type Detail Facility Start: 09-02-2015 End: 09-02-2015 Tobacco smoking status NYIS Unknown if ever smoked [facility] Start: 1960 Sex Assigned At Female [facility] Start: 09-02-2015 Tobacco smoking stat us NYIS Smokes tobacco daily (finding) [facility] Start: 01-30-2025 End: 02-01-2025 Sex Female (finding) [facility] Evaluation note Note Date & Type Note Facility Evaluation note No assessment information availa ble [facility] Work Phone: Reason for referral (narrative) Note Date & Type Note Facility Reason for referral (narrative) No reason for referral information available [facility] Work Phone: Advance Directives No Advanced Directives Records Found Advance Directive Response Recorded Date/ Time Living Will Yes September 02 9:30am Power of Cribber Yes September 02, 2015 9:30am Advance Directive Response Recorded Date/ Time Living Will Yes September 02 10:30am Power of Cribber Yes September 02, 2015 10:30am Chief Complaint and Reason for Visit Chief Complaint RT MEDIAL MENISCUS I NJURY SCREENING Chief Complaint SCREENING Chief Complaint Admit Date SCREENING January 26, 2025 12: 35pm Summary Purpose Family History No Family History Records Found Additional Source Comments Care Teams (unrecognized sec tion and content) Team Status: Active Member Role Status Dates Dr. Liz Mendoza DO Family Provider Active Dr. Liz Mendoza , DO Primary Care Provider Active Team Status: Inactive Member Role Status Dates Dr. Liz Mendoza DO Primary Care Provider, Natividad schmid Active Team Status: Inactive Member Role Status Dates Dr. Liz Mendoza , Primary Care Provider Active Dr. Christopher Cardoso , DO Attending Provider, Referring Provider Active Team Status: Inactive Member Role Status Dates Dr. Liz Mendoza DO Primary Care Provide r, Attending Provider, Referring Provider Active Team Status: Active Member Role Status Dates Dr. Liz Mendoza DO Primary Care Provider Active Team Status: Inactive Member Role Status Dates Dr. Liz Mendoza DO Primary Care Provider Active Start: January 26, 2025 End: January 26, 2025 Dr. Liz Mendoaz DO Attending Provider Active St art: January 26, 2025 End: January 26, 2025 Dr. Liz Mendoza DO Referring Provider Active St art: January 26, 2025 End: January 26, 2025 Team Status: Active Member Role Status Dates Dr. Liz Mendoza DO Primary Care Provider Active Start: January 28, 2025 Dr. Liz Mendoza DO Attending Provider Active St art: January 28, 2025 Dr. Liz Mendoza DO Referring Provider Active St art: January 28, 2025 Team Status: Inactive Member Role Status Dates Dr. Liz Mendoza DO Primary Care Provider Active Start: January 28, 2025 End: January 28, 2025 Dr. Liz Mendoza DO Attending Provider Active St art: January 28, 2025 End: January 28, 2025 Dr. Liz Mendoza DO Referring Provider Active St art: January 28, 2025 End: January 28, 2025 Goals (unrecognized section and content) Goals may be documented in a n alternate sectionGoals may be documented in an alternate sectionGoals may be documented in an alternate sectionGoals may be documented in an alternate sectionGoals may be documented in an alternate sectionGoals may be documented in an alternate section INFORMATION SOURCE (unrecogn ized section and content) DATE CREATED AUTHOR 02/03/2025 [facility] FOR RECORDS PERTAINING TO PATIENTS WHO ARE OR HAVE BEEN ENROLLED IN A CHEMICAL DEPENDENCY/SUBSTANCEABUSE PROGRAM, SOME INFORMATION MAY BE OMITTED. This clinical summary was aggregated from multiple sources. Caution should be exercised in using it in the provision of clinical care. This summary normalizes information from multiple sources, and as a consequence, information in this document may materially change the coding, format and clinical context of patient data. In addition, data may be omitted in some cases. CLINICAL DECISIONS SHOULD BE BASED ON THE PRIMARY CLINICAL RECORDS. [employer] provides no warranty or guarantee of the accuracy or completeness of information in this document.
== END | disposition home or self-care (01) ==
PROVIDERS: PCP Family Medicine; Referring Provider Nurse Practitioner Family; Visit Provider Nurse Practitioner Family
DX: L72.0 Epidermal cyst (principal)
CPT/HCPCS: 87070; 87077; 87186; 87205